=== PATIENT | male | born 1960 | race Caucasian/White ===

== ENCOUNTER → 2017-02-25 | Outpatient (CLI) | payer OTHER ==
[~2017-02-25] MED LIST: CALC12502; CELE20TA; CELE20TA OR; FOLI1TAB86 PO; LISI10TA4; LISI10TA4 OR; METF1000 PO; METO100T PO; NO MEDICATIONS; PROZ10CA7 PO; RISP0.5T3 PO; RISP1TAB; RISP1TAB OR; RISP2TAB3 PO; SIMV40TA2; TRAZ100T OR; TRAZ50TA; TRAZ50TA2 PO; VITA100T2 PO; VITA500047 PO; VITAMIN D50000 UNT; VITMTA PO; ZOCO40TA OR; androgel
[2017-02-25 10:49] LABS: ALBUMIN 3.5 GM/DL (3.2-5.2); ALBUMIN/GLOBULIN RATIO 1.06 (1.00-1.93); ALKALINE PHOSPHATASE 88 U/L (45-117); ALT/SGPT 25 U/L (12-78); ANION GAP 8 MEQ/L (8-16); AST/SGOT 22 U/L (15-37); BILIRUBIN,TOTAL 0.6 MG/DL (0.2-1.0); BLOOD UREA NITROGEN 15 MG/DL (7-18); CARBON DIOXIDE LEVEL 25 MEQ/L (21-32); CHLORIDE LEVEL 111 MEQ/L (98-107); CREATININE FOR GFR 0.86 MG/DL (0.70-1.30); GLOMERULAR FILTRATION RATE > 60.0 (>56); GLUCOSE, FASTING 97 MG/DL (70-105); POTASSIUM SERUM 3.9 MEQ/L (3.5-5.1); SODIUM LEVEL 144 MEQ/L (136-145); TOTAL PROTEIN 6.8 GM/DL (6.4-8.2)
== END ==
LOC: M LAB 08:55
PROVIDERS: ATTEND Nurse Practitioner Family
DX: J40 Bronchitis, not specified as acute or chronic (principal)

== ENCOUNTER → 2017-08-18 | Outpatient (REF) | payer OTHER | LOC: M LAB REF 16:46 | PROVIDERS: ATTEND Nurse Practitioner Adult Health | DX: E29.1 Testicular hypofunction (principal) ==

== ENCOUNTER 2017-11-23 07:57 | Inpatient (IN) | payer OTHER ==
[2017-11-23] MEDS ORDERED: LR 1,000 ML IV (08:00)
[2017-11-23 09:33] LABS: BEDSIDE GLUCOSE 97 MG/DL (70-105)
[2017-11-23] MEDS ORDERED: ROCURONIUM BROMIDE 50 MG/5 ML VIAL As Ordered ×2 (10:23→13:20)
[2017-11-23] MEDS ORDERED: MIDAZOLAM INJ 2 MG/2 ML VIAL (J2250) As Ordered (10:23)
[2017-11-23] MEDS ORDERED: LIDOCAINE 2% INJ 100 MG/5 ML SDV (FOR ANES.) As Ordered (10:23)
[2017-11-23] MEDS ORDERED: fentaNYL 250 MCG/5 ML INJECTION (J3010) As Ordered (10:23)
[2017-11-23] MEDS ORDERED: PROPOFOL 200 MG/20 ML VIAL As Ordered (10:23)
[2017-11-23] MEDS: LIDOCAINE W/EPINEPHRINE 1% 20ML VIAL As Ordered (13:05)
[2017-11-23] MEDS ORDERED: ePHEDrine INJ 50 MG/ML VIAL As Ordered (13:20)
[2017-11-23] MEDS ORDERED: GLYCOPYRROLATE INJ 0.2 MG/ML 2 ML VIAL As Ordered ×2 (13:21→16:48)
[2017-11-23] MEDS ORDERED: PHENYLephrine HCL 500 MCG/5 ML (100MCG/ML) SYRINGE (J2370) As Ordered (13:21)
[2017-11-23] MEDS ORDERED: HYDROmorphone HCL 2 MG/ML 1ML VIAL (J1170) As Ordered (13:36)
[2017-11-23] MEDS: ceFAZolin 1GM INJ (J0690 PER 500MG) As Ordered (14:06)
[2017-11-23] MEDS ORDERED: ONDANSETRON 4MG/2ML VIAL (J2405) As Ordered (14:31)
[2017-11-23] MEDS: BACITRACIN OINT 30GM As Ordered (17:15)
[2017-11-23] MEDS ORDERED: ONDANSETRON 4MG/2ML VIAL (J2405) IV (17:45)
[2017-11-23] MEDS ORDERED: PERCOCET 5MG/325MG TAB PO (17:45)
[2017-11-23] MEDS ORDERED: fentaNYL 100 MCG/2 ML INJECTION (J3010) IV (17:45)
[2017-11-23] MEDS: LR 1,000 ML IV (17:45)
[2017-11-23] MEDS ORDERED: HumaLOG INSULIN (NovoLOG) PER UNIT SC (18:00)
[2017-11-23] MEDS ORDERED: GLUCAGON FOR INJ 1 MG VIAL (J1610) SC (18:15)
[2017-11-23] MEDS ORDERED: GLUCOSE 4 GM CHEW TABLET PO (18:15)
[2017-11-23] MEDS ORDERED: NICOTINE 21MG/24HR 1 EA TRANSDERMAL TD (18:15)
[2017-11-23] MEDS ORDERED: DEXTROSE 50% 50 ML SYRINGE IV (18:15)
[2017-11-23] MEDS: NS 1,000 ML IV (19:00)
[2017-11-23 19:47] LABS: BEDSIDE GLUCOSE 88 MG/DL (70-105)
[2017-11-23 20:36] LABS: HIVSOURCE0 NEGATIVE (NEGATIVE)
[2017-11-23 20:43] LABS: CONTROL LINE INT CTR LINE PRESENT; HIV SOURCE PT 1 NEGATIVE (NEGATIVE)
[2017-11-23] MEDS: risperiDONE 1 MG TAB GT (21:00)
[2017-11-23] MEDS: METOPROLOL TART 50 MG TAB GT (21:00)
[2017-11-23] MEDS: SENOKOT S TAB GT (21:00)
[2017-11-23] MEDS: CEFAZOLIN SOD 1 GM in APPROPRIATE DILUENT 1 EA IV (22:15)
[2017-11-24 00:19] LABS: BEDSIDE GLUCOSE 98 MG/DL (70-105)
[2017-11-24] MEDS: NS 1,000 ML IV (04:15)
[2017-11-24 05:10] LABS: HEMATOCRIT 36.3 % (42.0-52.0); HEMOGLOBIN 12.1 g/dl (14.0-18.0); MEAN CORPUSCULAR HEMOGLOBIN 31.9 pg (27.0-33.0); MEAN CORPUSCULAR HGB CONC 33.3 g/dl (32.0-36.5); MEAN CORPUSCULAR VOLUME 95.8 fl (80.0-96.0); PLATELET COUNT, AUTOMATED 283 10^3/uL (150-450); RED BLOOD COUNT 3.79 10^6/uL (4.30-6.10); RED CELL DISTRIBUTION WIDTH 13.2 % (11.5-14.5); WHITE BLOOD COUNT 16.3 10^3/uL (4.0-10.0)
[2017-11-24 05:26] LABS: ANION GAP 7 MEQ/L (8-16); BLOOD UREA NITROGEN 12 MG/DL (7-18); CALCIUM LEVEL 7.9 MG/DL (8.5-10.1); CARBON DIOXIDE LEVEL 26 MEQ/L (21-32); CHLORIDE LEVEL 107 MEQ/L (98-107); CREATININE FOR GFR 0.51 MG/DL (0.70-1.30); GLOMERULAR FILTRATION RATE > 60.0 (>56); GLUCOSE, FASTING 94 MG/DL (70-105); MAGNESIUM LEVEL 1.8 MG/DL (1.8-2.4); POTASSIUM SERUM 3.7 MEQ/L (3.5-5.1); SODIUM LEVEL 140 MEQ/L (136-145)
[2017-11-24] MEDS: CEFAZOLIN SOD 1 GM in APPROPRIATE DILUENT 1 EA IV ×3 (06:13→22:40)
[2017-11-24] MEDS ORDERED: ISOVUE-370 76% 100ML VIAL (Q9967) As Ordered (07:38)
[2017-11-24] MEDS: SENOKOT S TAB GT ×2 (09:30→22:22)
[2017-11-24] MEDS: ATORVASTATIN 20 MG TAB GT (09:30)
[2017-11-24] MEDS: risperiDONE 1 MG TAB GT ×2 (09:31→22:22)
[2017-11-24] MEDS: METOPROLOL TART 50 MG TAB GT ×2 (09:31→22:21)
[2017-11-24] MEDS: PANTOPRAZOLE 40MG INJ (PROTONIX) (C9113) IV (09:31)
[2017-11-24] MEDS: FLUoxetine 10 MG CAP GT (09:31)
[2017-11-24 10:32] LABS: HEPATITIS B SURFACE ANTIGEN NEGATIVE (NEGATIVE)
[2017-11-24 11:01] LABS: HEP C VIRUS AB INDEX SOURCE PT 0.1 INDEX (0.0-0.8)
[2017-11-24] MEDS: LR 1,000 ML IV ×2 (11:04→20:19)
[2017-11-24] MEDS: MORPHINE 4 MG/ML 1ML SYRINGE IV (16:53)
[2017-11-25] MEDS: LR 1,000 ML IV (05:21)
[2017-11-25] MEDS: CEFAZOLIN SOD 1 GM in APPROPRIATE DILUENT 1 EA IV ×3 (05:22→21:39)
[2017-11-25 05:53] LABS: HEMOGLOBIN 10.7 g/dl (14.0-18.0); MEAN CORPUSCULAR HEMOGLOBIN 32.1 pg (27.0-33.0); MEAN CORPUSCULAR HGB CONC 33.4 g/dl (32.0-36.5); MEAN CORPUSCULAR VOLUME 96.1 fl (80.0-96.0); PLATELET COUNT, AUTOMATED 264 10^3/uL (150-450); RED BLOOD COUNT 3.33 10^6/uL (4.30-6.10); RED CELL DISTRIBUTION WIDTH 13.2 % (11.5-14.5); WHITE BLOOD COUNT 11.6 10^3/uL (4.0-10.0)
[2017-11-25 06:11] LABS: ANION GAP 3 MEQ/L (8-16); BLOOD UREA NITROGEN 6 MG/DL (7-18); CARBON DIOXIDE LEVEL 32 MEQ/L (21-32); CHLORIDE LEVEL 108 MEQ/L (98-107); CREATININE FOR GFR 0.47 MG/DL (0.70-1.30); GLOMERULAR FILTRATION RATE > 60.0 (>56); GLUCOSE, FASTING 144 MG/DL (70-105); POTASSIUM SERUM 3.3 MEQ/L (3.5-5.1); SODIUM LEVEL 143 MEQ/L (136-145)
[2017-11-25 08:37] LABS: FERRITIN 229 NG/ML (26-388); IRON (FE) 16 UG/DL (65-175); PERCENT SATURATION 10.2 % (19.7-50.0); TOTAL IRON BINDING CAPACITY 157 UG/DL (250-450)
[2017-11-25] MEDS: MULTIVITAMIN/MINERALS LIQUID 15ML ORAL SYRINGE PO (09:00)
[2017-11-25 09:33] LABS: VITAMIN B12 LEVEL 211 PG/ML (247-911)
[2017-11-25 09:34] LABS: FOLATE 4.7 NG/ML (>5.4)
[2017-11-25 09:46] LABS: INR 1.11; PROTHROMBIN TIME 14.5 SECONDS (12.4-14.5)
[2017-11-25 09:47] LABS: PARTIAL THROMBOPLASTIN TIME 37.4 SECONDS (26.8-37.9)
[2017-11-25] MEDS: PANTOPRAZOLE 40MG INJ (PROTONIX) (C9113) IV (10:33)
[2017-11-25] MEDS: SENOKOT S TAB GT ×2 (10:33→21:38)
[2017-11-25] MEDS: POTASSIUM CHLORIDE 10% LIQ 20 MEQ/15 ML UDC PO ×2 (10:33→21:39)
[2017-11-25] MEDS: FLUoxetine 10 MG CAP GT (10:33)
[2017-11-25] MEDS: METOPROLOL TART 50 MG TAB GT ×2 (10:33→21:00)
[2017-11-25] MEDS: ATORVASTATIN 20 MG TAB GT (10:34)
[2017-11-25] MEDS: risperiDONE 1 MG TAB GT ×2 (13:14→21:39)
[2017-11-25] MEDS: MORPHINE 4 MG/ML 1ML SYRINGE IV (13:16)
[2017-11-26 05:16] LABS: HEMATOCRIT 33.5 % (42.0-52.0); MEAN CORPUSCULAR HEMOGLOBIN 31.6 pg (27.0-33.0); MEAN CORPUSCULAR HGB CONC 32.8 g/dl (32.0-36.5); MEAN CORPUSCULAR VOLUME 96.3 fl (80.0-96.0); PLATELET COUNT, AUTOMATED 297 10^3/uL (150-450); RED BLOOD COUNT 3.48 10^6/uL (4.30-6.10); RED CELL DISTRIBUTION WIDTH 13.2 % (11.5-14.5); WHITE BLOOD COUNT 11.8 10^3/uL (4.0-10.0)
[2017-11-26 05:31] LABS: ANION GAP 5 MEQ/L (8-16); BLOOD UREA NITROGEN 5 MG/DL (7-18); CALCIUM LEVEL 8.2 MG/DL (8.5-10.1); CARBON DIOXIDE LEVEL 27 MEQ/L (21-32); CHLORIDE LEVEL 111 MEQ/L (98-107); CREATININE FOR GFR 0.45 MG/DL (0.70-1.30); GLOMERULAR FILTRATION RATE > 60.0 (>56); GLUCOSE, FASTING 134 MG/DL (70-105); MAGNESIUM LEVEL 2.2 MG/DL (1.8-2.4); POTASSIUM SERUM 3.6 MEQ/L (3.5-5.1); SODIUM LEVEL 143 MEQ/L (136-145)
[2017-11-26] MEDS: CEFAZOLIN SOD 1 GM in APPROPRIATE DILUENT 1 EA IV ×3 (05:58→21:22)
[2017-11-26] MEDS: LR 1,000 ML IV (06:52)
[2017-11-26] MEDS: METOPROLOL TART 50 MG TAB GT ×2 (09:00→21:22)
[2017-11-26] MEDS: ATORVASTATIN 20 MG TAB GT (09:00)
[2017-11-26] MEDS: SENOKOT S TAB GT ×2 (09:00→21:22)
[2017-11-26] MEDS: PANTOPRAZOLE 40MG INJ (PROTONIX) (C9113) IV (09:34)
[2017-11-26] MEDS: POTASSIUM CHLORIDE 10% LIQ 20 MEQ/15 ML UDC FT (09:35)
[2017-11-26] MEDS: FLUoxetine 10 MG CAP GT (09:36)
[2017-11-26] MEDS: MULTIVITAMIN/MINERALS LIQUID 15ML ORAL SYRINGE PO (09:42)
[2017-11-26] MEDS: risperiDONE 1 MG TAB GT ×2 (09:42→21:22)
[2017-11-26] MEDS: SODIUM CHLORIDE 0.9% 1000 ML IV (15:40)
[2017-11-26 16:31] LABS: APPEARANCE, URINE CLEAR (CLEAR); BACTERIA, URINE AUTO NEGATIVE (NEGATIVE); BILIRUBIN, URINE AUTO NEGATIVE (NEGATIVE); BLOOD, URINE BLOOD 1+ (NEGATIVE); COLOR, URINE YELLOW (YELLOW); GLUCOSE, URINE (UA) AUTO NEGATIVE (NEGATIVE); KETONE, URINE AUTO NEGATIVE (NEGATIVE); LEUKOCYTE ESTERASE, URINE AUTO NEGATIVE (NEGATIVE); NITRITE, URINE AUTO NEGATIVE (NEGATIVE); PROTEIN, URINE AUTO NEGATIVE (NEGATIVE); RBC, URINE AUTO 5 /HPF (0-3); SPECIFIC GRAVITY URINE AUTO 1.009 (1.002-1.035); SQUAMOUS EPITHELIAL CELL UR AU 0 /HPF (0-6); UROBILINOGEN, URINE AUTO 0.2 mg/dL (0.0-2.0); WBC, URINE AUTO 1 /HPF (0-3)
[2017-11-27] MEDS: MORPHINE 4 MG/ML 1ML SYRINGE IV (02:43)
[2017-11-27 05:35] LABS: HEMATOCRIT 32.4 % (42.0-52.0); HEMOGLOBIN 10.8 g/dl (14.0-18.0); MEAN CORPUSCULAR HEMOGLOBIN 31.7 pg (27.0-33.0); MEAN CORPUSCULAR HGB CONC 33.3 g/dl (32.0-36.5); PLATELET COUNT, AUTOMATED 326 10^3/uL (150-450); RED BLOOD COUNT 3.41 10^6/uL (4.30-6.10); WHITE BLOOD COUNT 11.2 10^3/uL (4.0-10.0)
[2017-11-27] MEDS: CEFAZOLIN SOD 1 GM in APPROPRIATE DILUENT 1 EA IV ×3 (05:46→21:08)
[2017-11-27 05:57] LABS: ANION GAP 4 MEQ/L (8-16); BLOOD UREA NITROGEN 7 MG/DL (7-18); CALCIUM LEVEL 8.2 MG/DL (8.5-10.1); CARBON DIOXIDE LEVEL 29 MEQ/L (21-32); CHLORIDE LEVEL 111 MEQ/L (98-107); GLOMERULAR FILTRATION RATE > 60.0 (>56); GLUCOSE, FASTING 105 MG/DL (70-105); MAGNESIUM LEVEL 2.2 MG/DL (1.8-2.4); SODIUM LEVEL 144 MEQ/L (136-145)
[2017-11-27] MEDS: METOPROLOL TART 50 MG TAB GT ×2 (09:00→21:00)
[2017-11-27] MEDS: PANTOPRAZOLE 40MG INJ (PROTONIX) (C9113) IV (10:01)
[2017-11-27] MEDS: MULTIVITAMIN/MINERALS LIQUID 15ML ORAL SYRINGE PO (10:01)
[2017-11-27] MEDS: FLUoxetine 10 MG CAP GT (10:02)
[2017-11-27] MEDS: ATORVASTATIN 20 MG TAB GT (10:02)
[2017-11-27] MEDS: risperiDONE 1 MG TAB GT ×2 (10:02→21:05)
[2017-11-27] MEDS: SENOKOT S TAB GT ×2 (10:02→21:07)
[2017-11-27] MEDS: LR 1,000 ML IV (14:09)
[2017-11-28 05:28] LABS: HEMATOCRIT 33.1 % (42.0-52.0); HEMOGLOBIN 10.8 g/dl (14.0-18.0); MEAN CORPUSCULAR HEMOGLOBIN 31.4 pg (27.0-33.0); MEAN CORPUSCULAR HGB CONC 32.6 g/dl (32.0-36.5); MEAN CORPUSCULAR VOLUME 96.2 fl (80.0-96.0); PLATELET COUNT, AUTOMATED 309 10^3/uL (150-450); RED BLOOD COUNT 3.44 10^6/uL (4.30-6.10); RED CELL DISTRIBUTION WIDTH 13.1 % (11.5-14.5); WHITE BLOOD COUNT 10.7 10^3/uL (4.0-10.0)
[2017-11-28 05:45] LABS: ANION GAP 5 MEQ/L (8-16); BLOOD UREA NITROGEN 9 MG/DL (7-18); CALCIUM LEVEL 8.4 MG/DL (8.5-10.1); CARBON DIOXIDE LEVEL 31 MEQ/L (21-32); CHLORIDE LEVEL 109 MEQ/L (98-107); GLOMERULAR FILTRATION RATE > 60.0 (>56); GLUCOSE, FASTING 83 MG/DL (70-105); MAGNESIUM LEVEL 2.4 MG/DL (1.8-2.4); SODIUM LEVEL 145 MEQ/L (136-145)
[2017-11-28] MEDS: CEFAZOLIN SOD 1 GM in APPROPRIATE DILUENT 1 EA IV ×3 (06:16→21:51)
[2017-11-28] MEDS: METOPROLOL TART 50 MG TAB GT (09:00)
[2017-11-28] MEDS: MULTIVITAMIN/MINERALS LIQUID 15ML ORAL SYRINGE PO (09:55)
[2017-11-28] MEDS: LR 1,000 ML IV (09:55)
[2017-11-28] MEDS: PANTOPRAZOLE 40MG INJ (PROTONIX) (C9113) IV (09:55)
[2017-11-28] MEDS: FLUoxetine 10 MG CAP GT (09:56)
[2017-11-28] MEDS: risperiDONE 1 MG TAB GT ×2 (09:56→21:51)
[2017-11-28] MEDS: SENOKOT S TAB GT ×2 (09:56→21:51)
[2017-11-28] MEDS: ATORVASTATIN 20 MG TAB GT (09:56)
[2017-11-28 13:50] LABS: BEDSIDE GLUCOSE 134 MG/DL (70-105)
[2017-11-28] MEDS: MORPHINE 4 MG/ML 1ML SYRINGE IV ×2 (15:36→21:50)
[2017-11-28 19:11] LABS: BEDSIDE GLUCOSE 94 MG/DL (70-105)
[2017-11-28] MEDS: METOPROLOL TART 12.5 MG PER 1/2 TAB FT (21:51)
[2017-11-29 00:30] LABS: BEDSIDE GLUCOSE 187 MG/DL (70-105)
[2017-11-29] MEDS ORDERED: SLF 3 ML SYR IV (04:15)
[2017-11-29 05:22] LABS: HEMATOCRIT 32.9 % (42.0-52.0); HEMOGLOBIN 11.2 g/dl (14.0-18.0); MEAN CORPUSCULAR HEMOGLOBIN 32.1 pg (27.0-33.0); MEAN CORPUSCULAR VOLUME 94.3 fl (80.0-96.0); PLATELET COUNT, AUTOMATED 339 10^3/uL (150-450); RED BLOOD COUNT 3.49 10^6/uL (4.30-6.10); RED CELL DISTRIBUTION WIDTH 13.1 % (11.5-14.5); WHITE BLOOD COUNT 10.5 10^3/uL (4.0-10.0)
[2017-11-29 05:42] LABS: ANION GAP 4 MEQ/L (8-16); BLOOD UREA NITROGEN 12 MG/DL (7-18); CALCIUM LEVEL 8.5 MG/DL (8.5-10.1); CARBON DIOXIDE LEVEL 31 MEQ/L (21-32); CHLORIDE LEVEL 107 MEQ/L (98-107); CREATININE FOR GFR 0.52 MG/DL (0.70-1.30); GLOMERULAR FILTRATION RATE > 60.0 (>56); GLUCOSE, FASTING 83 MG/DL (70-105); MAGNESIUM LEVEL 2.4 MG/DL (1.8-2.4); SODIUM LEVEL 142 MEQ/L (136-145)
[2017-11-29] MEDS: CEFAZOLIN SOD 1 GM in APPROPRIATE DILUENT 1 EA IV ×3 (05:50→22:08)
[2017-11-29] MEDS: SLF 3 ML SYR IV ×3 (05:50→22:08)
[2017-11-29] MEDS ORDERED: ACETAMINOPHEN/CODEINE 12.5 ML UDC PO (09:00)
[2017-11-29] MEDS: risperiDONE 1 MG TAB GT ×2 (10:15→22:08)
[2017-11-29] MEDS: ATORVASTATIN 20 MG TAB GT (10:15)
[2017-11-29] MEDS: SENOKOT S TAB GT ×2 (10:15→22:08)
[2017-11-29] MEDS: PANTOPRAZOLE 40MG INJ (PROTONIX) (C9113) IV (10:15)
[2017-11-29] MEDS: FLUoxetine 10 MG CAP GT (10:15)
[2017-11-29] MEDS: MULTIVITAMIN/MINERALS LIQUID 15ML ORAL SYRINGE PO (10:15)
[2017-11-29] MEDS: METOPROLOL TART 12.5 MG PER 1/2 TAB FT ×2 (10:21→22:07)
[2017-11-29 12:32] LABS: BEDSIDE GLUCOSE 116 MG/DL (70-105)
[2017-11-29 18:03] LABS: BEDSIDE GLUCOSE 98 MG/DL (70-105)
[2017-11-30 00:54] LABS: BEDSIDE GLUCOSE 81 MG/DL (70-105)
[2017-11-30] MEDS: CEFAZOLIN SOD 1 GM in APPROPRIATE DILUENT 1 EA IV ×2 (06:07→13:07)
[2017-11-30] MEDS: SLF 3 ML SYR IV ×3 (06:07→20:31)
[2017-11-30 06:40] LABS: HEMATOCRIT 34.7 % (42.0-52.0); HEMOGLOBIN 11.6 g/dl (14.0-18.0); MEAN CORPUSCULAR HEMOGLOBIN 31.4 pg (27.0-33.0); MEAN CORPUSCULAR HGB CONC 33.4 g/dl (32.0-36.5); PLATELET COUNT, AUTOMATED 357 10^3/uL (150-450); RED BLOOD COUNT 3.69 10^6/uL (4.30-6.10); RED CELL DISTRIBUTION WIDTH 13.1 % (11.5-14.5); WHITE BLOOD COUNT 11.2 10^3/uL (4.0-10.0)
[2017-11-30 06:57] LABS: ANION GAP 5 MEQ/L (8-16); BLOOD UREA NITROGEN 17 MG/DL (7-18); CALCIUM LEVEL 8.6 MG/DL (8.5-10.1); CARBON DIOXIDE LEVEL 29 MEQ/L (21-32); CHLORIDE LEVEL 108 MEQ/L (98-107); CREATININE FOR GFR 0.58 MG/DL (0.70-1.30); GLOMERULAR FILTRATION RATE > 60.0 (>56); GLUCOSE, FASTING 94 MG/DL (70-100); MAGNESIUM LEVEL 2.4 MG/DL (1.8-2.4); POTASSIUM SERUM 4.1 MEQ/L (3.5-5.1); SODIUM LEVEL 142 MEQ/L (136-145)
[2017-11-30] MEDS: FLUoxetine 10 MG CAP GT (10:03)
[2017-11-30] MEDS: risperiDONE 1 MG TAB GT ×2 (10:03→20:31)
[2017-11-30] MEDS: ATORVASTATIN 20 MG TAB GT (10:03)
[2017-11-30] MEDS: METOPROLOL TART 12.5 MG PER 1/2 TAB FT ×2 (10:03→20:31)
[2017-11-30] MEDS: SENOKOT S TAB GT ×2 (10:03→20:31)
[2017-11-30] MEDS: PANTOPRAZOLE 40MG INJ (PROTONIX) (C9113) IV (10:04)
[2017-11-30] MEDS: MULTIVITAMIN/MINERALS LIQUID 15ML ORAL SYRINGE PO (10:04)
[2017-11-30 13:23] LABS: BEDSIDE GLUCOSE 174 MG/DL (70-105)
[2017-12-01] MEDS: SLF 3 ML SYR IV (06:09)
[2017-12-01 08:51] LABS: HEMATOCRIT 35.6 % (42.0-52.0); HEMOGLOBIN 11.9 g/dl (14.0-18.0); MEAN CORPUSCULAR HEMOGLOBIN 32.2 pg (27.0-33.0); MEAN CORPUSCULAR HGB CONC 33.4 g/dl (32.0-36.5); MEAN CORPUSCULAR VOLUME 96.5 fl (80.0-96.0); PLATELET COUNT, AUTOMATED 350 10^3/uL (150-450); RED BLOOD COUNT 3.69 10^6/uL (4.30-6.10); RED CELL DISTRIBUTION WIDTH 13.2 % (11.5-14.5); WHITE BLOOD COUNT 9.3 10^3/uL (4.0-10.0)
[2017-12-01] MEDS: METOPROLOL TART 12.5 MG PER 1/2 TAB FT (09:00)
[2017-12-01 09:04] LABS: ANION GAP 6 MEQ/L (8-16); BLOOD UREA NITROGEN 14 MG/DL (7-18); CALCIUM LEVEL 8.1 MG/DL (8.5-10.1); CARBON DIOXIDE LEVEL 28 MEQ/L (21-32); CHLORIDE LEVEL 109 MEQ/L (98-107); CREATININE FOR GFR 0.65 MG/DL (0.70-1.30); GLOMERULAR FILTRATION RATE > 60.0 (>56); GLUCOSE, FASTING 122 MG/DL (70-100); POTASSIUM SERUM 4.2 MEQ/L (3.5-5.1); SODIUM LEVEL 143 MEQ/L (136-145)
[2017-12-01] MEDS: risperiDONE 1 MG TAB GT (09:48)
[2017-12-01] MEDS: PANTOPRAZOLE 40MG INJ (PROTONIX) (C9113) IV (09:48)
[2017-12-01] MEDS: ATORVASTATIN 20 MG TAB GT (09:48)
[2017-12-01] MEDS: MULTIVITAMIN/MINERALS LIQUID 15ML ORAL SYRINGE PO (09:48)
[2017-12-01] MEDS: SENOKOT S TAB GT (09:48)
[2017-12-01] MEDS: FLUoxetine 10 MG CAP GT (09:48)
== END 2017-12-01 11:20 | disposition home health service (06) | DRG 90 ==
LOC: M OR 07:57 → M PCU 11-24 16:20 → M ICU 18:30
PROVIDERS: Otolaryngology
PROC: 0CTS0ZZ Resection of Larynx, Open Approach (ICD-10-PCS; principal; 2017-11-23 10:15)
PROC: 0GBG0ZZ Excision of Left Thyroid Gland Lobe, Open Approach (ICD-10-PCS; 2017-11-23 10:15)
PROC: 0B1 Respiratory System, Bypass (ICD-10-PCS; 2017-11-23 10:15)
DX: C32.9 Malignant neoplasm of larynx, unspecified (principal); I77.4 Celiac artery compression syndrome; J44.9 Chronic obstructive pulmonary disease, unspecified; Z79.899 Other long term (current) drug therapy; I10 Essential (primary) hypertension; E11.9 Type 2 diabetes mellitus without complications; F17.200 Nicotine dependence, unspecified, uncomplicated; E78.5 Hyperlipidemia, unspecified; F41.9 Anxiety disorder, unspecified; K21.9 Gastro-esophageal reflux disease without esophagitis

== ENCOUNTER 2017-12-02 13:30 | Outpatient (RCR) | payer OTHER | END 2017-12-08 | disposition home or self-care (01) | LOC: M ST 13:30 | DX: Z51.89 Encounter for other specified aftercare (principal); C32.1 Malignant neoplasm of supraglottis ==

== ENCOUNTER 2017-12-09 15:08 | Outpatient (RCR) | payer OTHER | END 2018-01-05 | LOC: M ST 12-16 14:00 | DX: Z51.89 Encounter for other specified aftercare (principal); C32.1 Malignant neoplasm of supraglottis | CPT/HCPCS: 92507 ==

== ENCOUNTER → 2017-12-21 | Outpatient (CLI) | payer OTHER | LOC: M ONCR 14:04 | DX: C32.9 Malignant neoplasm of larynx, unspecified (principal) ==

== ENCOUNTER 2017-12-27 15:01 | Outpatient (RCR) | payer OTHER | END 2018-01-05 | LOC: M ONCR 15:01 | DX: C32.9 Malignant neoplasm of larynx, unspecified (principal) | CPT/HCPCS: 77334 ==

== ENCOUNTER → 2017-12-27 | Outpatient (CLI) | payer OTHER | LOC: M RAD 13:53 | DX: C32.9 Malignant neoplasm of larynx, unspecified (principal) ==

== ENCOUNTER → 2018-01-05 | Outpatient (CLI) | payer OTHER ==
[2018-01-05 10:11] LABS: INR 0.93; PROTHROMBIN TIME 12.5 SECONDS (12.4-14.5)
[2018-01-05 10:12] LABS: PARTIAL THROMBOPLASTIN TIME 30.4 SECONDS (26.8-37.9)
== END ==
LOC: M RAD 09:19
DX: C32.9 Malignant neoplasm of larynx, unspecified (principal)
CPT/HCPCS: 85610

== ENCOUNTER 2018-01-06 14:20 | Outpatient (RCR) | payer OTHER | END 2018-02-05 | LOC: M ST 01-13 08:15 | DX: Z51.89 Encounter for other specified aftercare (principal); C32.1 Malignant neoplasm of supraglottis ==

== ENCOUNTER → 2018-01-12 | Outpatient (CLI) | payer OTHER ==
[~2018-01-12] MED LIST changes: -CALC12502; -CELE20TA; -CELE20TA OR; -FOLI1TAB86 PO; +LIDOCAINE 1% MDV 20ML VIAL As Ordered; -LISI10TA4; -LISI10TA4 OR; -METF1000 PO; -METO100T PO; -NO MEDICATIONS; -PROZ10CA7 PO; -RISP0.5T3 PO; -RISP1TAB; -RISP1TAB OR; -RISP2TAB3 PO; -SIMV40TA2; -TRAZ100T OR; -TRAZ50TA; -TRAZ50TA2 PO; -VITA100T2 PO; -VITA500047 PO; -VITAMIN D50000 UNT; -VITMTA PO; -ZOCO40TA OR; -androgel
== END ==
LOC: M RADPRO 07:59
DX: R91.8 Other nonspecific abnormal finding of lung field (principal); C34.90 Malignant neoplasm of unspecified part of unspecified bronchus or lung; Z88.8 Allergy status to other drugs, medicaments and biological substances; Z79.899 Other long term (current) drug therapy
CPT/HCPCS: 32405

== ENCOUNTER → 2018-01-18 | Outpatient (CLI) | payer OTHER | LOC: M ST 08:24 | DX: R13.10 Dysphagia, unspecified (principal) | CPT/HCPCS: 74230 ==

== ENCOUNTER → 2018-01-20 | Outpatient (REF) | payer OTHER ==
[2018-01-20 17:58] LABS: CREATININE FOR GFR 0.79 MG/DL (0.70-1.30); GLOMERULAR FILTRATION RATE > 60.0 (>56)
[2018-01-20 17:58] LABS: BLOOD UREA NITROGEN 15 MG/DL (7-18)
== END ==
LOC: M LAB REF 16:48
DX: C34.11 Malignant neoplasm of upper lobe, right bronchus or lung (principal)

== ENCOUNTER → 2018-01-21 | Outpatient (CLI) | payer OTHER ==
[~2018-01-21] MED LIST changes: +ISOVUE-370 76% 100ML VIAL (Q9967) As Ordered; -LIDOCAINE 1% MDV 20ML VIAL As Ordered
== END ==
LOC: M RAD 06:50
DX: C34.11 Malignant neoplasm of upper lobe, right bronchus or lung (principal); R91.8 Other nonspecific abnormal finding of lung field
CPT/HCPCS: Q9967

== ENCOUNTER → 2018-01-26 | Outpatient (CLI) | payer OTHER ==
[~2018-01-26] MED LIST changes: -ISOVUE-370 76% 100ML VIAL (Q9967) As Ordered; +PROHANCE 279.3MG/ML 15ML VIAL (A9576) As Ordered
== END ==
LOC: M RAD 16:34
DX: C34.90 Malignant neoplasm of unspecified part of unspecified bronchus or lung (principal); M16.12 Unilateral primary osteoarthritis, left hip; R93.7 Abnormal findings on diagnostic imaging of other parts of musculoskeletal system
CPT/HCPCS: A9576

== ENCOUNTER → 2018-01-27 | Outpatient (CLI) | payer OTHER ==
[2018-01-27 11:55] LABS: ABG BASE EXCESS -3.3 (-2.0-2.0); ABG DEVICE ROOM AIR; ABG HCO3 20.7 MEQ/L (22.0-26.0); ABG O2 SATURATION 96.7 % (95.0-99.0); ABG PARTIAL PRESSURE CO2 34.5 mmHg (35.0-45.0); ABG PARTIAL PRESSURE O2 88.3 mmHg (75.0-100.0); ABG STANDARD HCO3 21.7 MEQ/L (22.0-26.0); ABG TOTAL CO2 21.8 MEQ/L (22.0-29.0); ABG pH (ARTERIAL) 7.396 UNITS (7.350-7.450)
[2018-01-27 12:09] LABS: APPEARANCE, URINE CLEAR (CLEAR); BACTERIA, URINE AUTO NEGATIVE (NEGATIVE); BILIRUBIN, URINE AUTO NEGATIVE (NEGATIVE); BLOOD, URINE BLOOD 2+ (NEGATIVE); COLOR, URINE YELLOW (YELLOW); GLUCOSE, URINE (UA) AUTO NEGATIVE (NEGATIVE); KETONE, URINE AUTO TRACE mg/dL (NEGATIVE); LEUKOCYTE ESTERASE, URINE AUTO NEGATIVE (NEGATIVE); MUCUS, URINE SMALL (NEGATIVE); NITRITE, URINE AUTO NEGATIVE (NEGATIVE); PROTEIN, URINE AUTO NEGATIVE (NEGATIVE); RBC, URINE AUTO 5 /HPF (0-3); SPECIFIC GRAVITY URINE AUTO 1.025 (1.002-1.035); SQUAMOUS EPITHELIAL CELL UR AU 0 /HPF (0-6); UROBILINOGEN, URINE AUTO 0.2 mg/dL (0.0-2.0); WBC, URINE AUTO 1 /HPF (0-3)
[2018-01-27 12:30] LABS: HEMATOCRIT 45.3 % (42.0-52.0); MEAN CORPUSCULAR HEMOGLOBIN 31.5 pg (27.0-33.0); MEAN CORPUSCULAR HGB CONC 33.1 g/dl (32.0-36.5); MEAN CORPUSCULAR VOLUME 95.2 fl (80.0-96.0); PLATELET COUNT, AUTOMATED 256 10^3/uL (150-450); RED BLOOD COUNT 4.76 10^6/uL (4.30-6.10); RED CELL DISTRIBUTION WIDTH 12.6 % (11.5-14.5)
[2018-01-27 12:48] LABS: INR 0.96; PROTHROMBIN TIME 12.9 SECONDS (12.4-14.5)
[2018-01-27 12:49] LABS: PARTIAL THROMBOPLASTIN TIME 31.6 SECONDS (26.8-37.9)
[2018-01-27 13:06] LABS: ANION GAP 5 MEQ/L (8-16); BLOOD UREA NITROGEN 9 MG/DL (7-18); CALCIUM LEVEL 8.9 MG/DL (8.5-10.1); CARBON DIOXIDE LEVEL 27 MEQ/L (21-32); CHLORIDE LEVEL 111 MEQ/L (98-107); CREATININE FOR GFR 0.78 MG/DL (0.70-1.30); GLOMERULAR FILTRATION RATE > 60.0 (>56); GLUCOSE, FASTING 92 MG/DL (70-100); POTASSIUM SERUM 4.4 MEQ/L (3.5-5.1); SODIUM LEVEL 143 MEQ/L (136-145)
== END ==
LOC: M ADMPAT 09:54
DX: Z01.818 Encounter for other preprocedural examination (principal); C34.90 Malignant neoplasm of unspecified part of unspecified bronchus or lung
CPT/HCPCS: 71046

== ENCOUNTER 2018-02-02 05:49 | Inpatient (IN) | payer OTHER ==
[2018-02-02] MEDS ORDERED: ceFAZolin 2 GM/D5W 50 ML IV BAG (J0690 PER 500MG) As Ordered (05:56)
[2018-02-02] MEDS: LR 1,000 ML IV ×2 (06:15→16:15)
[2018-02-02] MEDS: MUPIROCIN 2% OINT 22 GM TUBE TOP (06:15)
[2018-02-02] MEDS ORDERED: MIDAZOLAM INJ 2 MG/2 ML VIAL (J2250) As Ordered ×2 (06:52→09:56)
[2018-02-02] MEDS ORDERED: fentaNYL 100 MCG/2 ML INJECTION (J3010) As Ordered (06:52)
[2018-02-02] MEDS: fentaNYL 100 MCG/2 ML INJECTION (J3010) IV (07:18)
[2018-02-02] MEDS: MIDAZOLAM INJ 2 MG/2 ML VIAL (J2250) IV (07:18)
[2018-02-02 07:22] LABS: BEDSIDE GLUCOSE 96 MG/DL (70-105)
[2018-02-02] MEDS ORDERED: GLYCOPYRROLATE INJ 0.2 MG/ML 2 ML VIAL As Ordered (08:18)
[2018-02-02] MEDS ORDERED: ATROPINE SULF 1MG/10ML SYRINGE (J0461) As Ordered (08:19)
[2018-02-02] MEDS ORDERED: PHENYLephrine HCL 500 MCG/5 ML (100MCG/ML) SYRINGE (J2370) As Ordered ×4 (08:21→10:44)
[2018-02-02] MEDS: MOM 30ML SUSPENSION UDC PO (09:00)
[2018-02-02] MEDS: PANTOPRAZOLE 40MG TAB (PROTONIX) PO (09:00)
[2018-02-02] MEDS ORDERED: NICOTINE 21MG/24HR 1 EA TRANSDERMAL TD (09:00)
[2018-02-02] MEDS ORDERED: ONDANSETRON 4MG/2ML VIAL (J2405) IV ×3 (09:15→14:15)
[2018-02-02] MEDS ORDERED: NALOXONE INJ 0.4 MG/1 ML VIAL (J2310) IV (09:15)
[2018-02-02] MEDS ORDERED: EPIDURAL/PCA KEYS XX (09:15)
[2018-02-02] MEDS ORDERED: METOCLOPRAMIDE INJ 10MG/2ML VIAL (J2765) IV (09:15)
[2018-02-02] MEDS ORDERED: diphenhydrAMINE INJ 50MG/ML VIAL (J1200) IV (09:15)
[2018-02-02] MEDS ORDERED: WALLBOXKEY XX (09:15)
[2018-02-02] MEDS: CETACAINE SPRAY 5GM As Ordered (09:19)
[2018-02-02] MEDS ORDERED: PROPOFOL 200 MG/20 ML VIAL As Ordered ×2 (09:56→12:44)
[2018-02-02] MEDS ORDERED: fentaNYL 250 MCG/5 ML INJECTION (J3010) As Ordered (09:56)
[2018-02-02] MEDS ORDERED: BUPIVACAINE HCL 0.25% 30 ML VIAL As Ordered (09:56)
[2018-02-02] MEDS ORDERED: LIDOCAINE 2% INJ 100 MG/5 ML SDV (FOR ANES.) As Ordered (09:56)
[2018-02-02] MEDS ORDERED: ROCURONIUM BROMIDE 50 MG/5 ML VIAL As Ordered ×2 (09:56→10:05)
[2018-02-02] MEDS ORDERED: METOCLOPRAMIDE INJ 10MG/2ML VIAL (J2765) As Ordered (09:56)
[2018-02-02] MEDS ORDERED: dexameTHASONE 4 MG/ML 1ML VIAL (J1100) As Ordered ×2 (10:07)
[2018-02-02] MEDS: ceFAZolin 1GM INJ (J0690 PER 500MG) As Ordered (10:24)
[2018-02-02] MEDS ORDERED: DESFLURANE 240 ML INHALANT As Ordered (10:44)
[2018-02-02] MEDS: BUPIVACAINE HCL 0.5% 10 ML VIAL As Ordered (12:06)
[2018-02-02] MEDS: BUPIVACAINE LIPOSOME/PF 1.3% 20 ML VIAL (13.3MG/ML)(EXPAREL) As Ordered (12:06)
[2018-02-02] MEDS ORDERED: ONDANSETRON 4MG/2ML VIAL (J2405) As Ordered (12:08)
[2018-02-02] MEDS ORDERED: SUGAMMADEX SODIUM 500 MG/5 ML VIAL (BRIDION) As Ordered (12:09)
[2018-02-02] MEDS ORDERED: fentaNYL 100 MCG/2 ML INJECTION (J3010) IV (13:15)
[2018-02-02] MEDS: KETOROLAC 30 MG/ML VIAL (J1885) IV ×2 (13:20→20:13)
[2018-02-02] MEDS ORDERED: KETOROLAC 30 MG/ML VIAL (J1885) As Ordered (13:20)
[2018-02-02 13:29] LABS: ABG DEVICE TRACH COLLAR; ABG FIO2 40; ABG HCO3 21.4 MEQ/L (22.0-26.0); ABG O2 SATURATION 95.6 % (95.0-99.0); ABG PARTIAL PRESSURE CO2 44.9 mmHg (35.0-45.0); ABG PARTIAL PRESSURE O2 91.1 mmHg (75.0-100.0); ABG STANDARD HCO3 20.3 MEQ/L (22.0-26.0); ABG TOTAL CO2 22.8 MEQ/L (22.0-29.0); ABG pH (ARTERIAL) 7.297 UNITS (7.350-7.450)
[2018-02-02 13:33] LABS: HEMOGLOBIN 14.4 g/dl (14.0-18.0); MEAN CORPUSCULAR HEMOGLOBIN 32.1 pg (27.0-33.0); MEAN CORPUSCULAR HGB CONC 33.5 g/dl (32.0-36.5); MEAN CORPUSCULAR VOLUME 95.8 fl (80.0-96.0); PLATELET COUNT, AUTOMATED 271 10^3/uL (150-450); RED BLOOD COUNT 4.49 10^6/uL (4.30-6.10); RED CELL DISTRIBUTION WIDTH 13.1 % (11.5-14.5); WHITE BLOOD COUNT 25.1 10^3/uL (4.0-10.0)
[2018-02-02 13:55] LABS: ANION GAP 4 MEQ/L (8-16); BLOOD UREA NITROGEN 8 MG/DL (7-18); CALCIUM LEVEL 8.3 MG/DL (8.5-10.1); CARBON DIOXIDE LEVEL 25 MEQ/L (21-32); CHLORIDE LEVEL 113 MEQ/L (98-107); CREATININE FOR GFR 0.79 MG/DL (0.70-1.30); GLOMERULAR FILTRATION RATE > 60.0 (>56); GLUCOSE, FASTING 158 MG/DL (70-100); POTASSIUM SERUM 4.5 MEQ/L (3.5-5.1); SODIUM LEVEL 142 MEQ/L (136-145)
[2018-02-02] MEDS ORDERED: GLUCAGON FOR INJ 1 MG VIAL (J1610) SC (14:15)
[2018-02-02] MEDS ORDERED: DEXTROSE 50% 50 ML SYRINGE IV (14:15)
[2018-02-02] MEDS ORDERED: ACETAMINOPHEN TAB 650MG DOSE (2X325MG) PO (14:15)
[2018-02-02] MEDS ORDERED: GLUCOSE 4 GM CHEW TABLET PO (14:15)
[2018-02-02] MEDS ORDERED: BISACODYL 10 MG SUPP PR (14:15)
[2018-02-02] MEDS ORDERED: LEVALBUTEROL 1.25 MG/0.5 ML CONCENTRATE NEB NEB (14:15)
[2018-02-02] MEDS: FENTANYL/BUPIVACAINE/NACL BAG 250 ML EPIDURAL (15:57)
[2018-02-02] MEDS: KCL 20MEQ IN D5/NS 1000ML 1,000 ML IV (16:00)
[2018-02-02] MEDS: CEFAZOLIN SOD 1 GM in APPROPRIATE DILUENT 1 EA IV (16:06)
[2018-02-02] MEDS: HumaLOG INSULIN (NovoLOG) PER UNIT SC (17:07)
[2018-02-02 17:08] LABS: BEDSIDE GLUCOSE 151 MG/DL (70-105)
[2018-02-02] MEDS ORDERED: METOPROLOL TARTRATE 100 MG TAB As Ordered (17:18)
[2018-02-02] MEDS: METOPROLOL TARTRATE 100 MG TAB PO (17:27)
[2018-02-02] MEDS: DOCUSATE SODIUM 100 MG CAP PO (20:14)
[2018-02-02] MEDS: HEPARIN SOD (PORCINE) 5000 UNITS/ML VIAL SC (20:14)
[2018-02-02] MEDS: risperiDONE 1 MG TAB PO (20:14)
[2018-02-02] MEDS: LEVALBUTEROL 1.25 MG/0.5 ML CONCENTRATE NEB NEB (20:57)
[2018-02-02] MEDS: BUDESONIDE 0.5 MG/2 ML INHALATION SUSPENSION INH (20:57)
[2018-02-03] MEDS: CEFAZOLIN SOD 1 GM in APPROPRIATE DILUENT 1 EA IV ×4 (00:19→23:43)
[2018-02-03 00:24] LABS: BEDSIDE GLUCOSE 130 MG/DL (70-105)
[2018-02-03] MEDS: LEVALBUTEROL 1.25 MG/0.5 ML CONCENTRATE NEB NEB ×4 (02:00→20:00)
[2018-02-03] MEDS: KETOROLAC 30 MG/ML VIAL (J1885) IV ×4 (03:00→21:07)
[2018-02-03] MEDS: KCL 20MEQ IN D5/NS 1000ML 1,000 ML IV (03:00)
[2018-02-03 06:11] LABS: ABG BASE EXCESS -2.7 (-2.0-2.0); ABG HCO3 22.5 MEQ/L (22.0-26.0); ABG O2 SATURATION 98.3 % (95.0-99.0); ABG PARTIAL PRESSURE CO2 40.5 mmHg (35.0-45.0); ABG PARTIAL PRESSURE O2 117.2 mmHg (75.0-100.0); ABG STANDARD HCO3 22.2 MEQ/L (22.0-26.0); ABG TOTAL CO2 23.7 MEQ/L (22.0-29.0); ABG pH (ARTERIAL) 7.362 UNITS (7.350-7.450)
[2018-02-03 06:17] LABS: BASO % 0.1 % (0.0-1.0); HEMATOCRIT 35.8 % (42.0-52.0); IMMATURE GRANULOCYTE % 0.5 % (0-3.0); LYMPH # 1.8 10^3/uL (1.5-4.5); LYMPH % 9.7 % (24.0-44.0); MEAN CORPUSCULAR HEMOGLOBIN 32.5 pg (27.0-33.0); MEAN CORPUSCULAR HGB CONC 33.8 g/dl (32.0-36.5); MEAN CORPUSCULAR VOLUME 96.2 fl (80.0-96.0); MONO % 14.4 % (0.0-5.0); NEUTROPHILS # 13.9 10^3/uL (1.8-7.7); NEUTROPHILS % 75.3 % (36.0-66.0); PLATELET COUNT, AUTOMATED 222 10^3/uL (150-450); RED BLOOD COUNT 3.72 10^6/uL (4.30-6.10); RED CELL DISTRIBUTION WIDTH 12.7 % (11.5-14.5); WHITE BLOOD COUNT 18.4 10^3/uL (4.0-10.0)
[2018-02-03 06:20] LABS: HEMOGLOBIN 12.1 g/dl (14.0-18.0); MONO # 2.7 10^3/uL (0.0-0.8); POSITIVE DIFF POS FLAG
[2018-02-03 06:38] LABS: ANION GAP 4 MEQ/L (8-16); BLOOD UREA NITROGEN 14 MG/DL (7-18); CALCIUM LEVEL 7.9 MG/DL (8.5-10.1); CARBON DIOXIDE LEVEL 25 MEQ/L (21-32); CHLORIDE LEVEL 112 MEQ/L (98-107); GLOMERULAR FILTRATION RATE > 60.0 (>56); GLUCOSE, FASTING 115 MG/DL (70-100); POTASSIUM SERUM 4.9 MEQ/L (3.5-5.1); SODIUM LEVEL 141 MEQ/L (136-145)
[2018-02-03] MEDS: FORMOTEROL FUMARATE 20 MCG/2 ML INHALATION SOLUTION (PERFOROMIST) INH ×2 (08:00→20:13)
[2018-02-03] MEDS: BUDESONIDE 0.5 MG/2 ML INHALATION SUSPENSION INH ×2 (08:09→20:13)
[2018-02-03] MEDS: HEPARIN SOD (PORCINE) 5000 UNITS/ML VIAL SC ×2 (09:26→21:12)
[2018-02-03] MEDS: HumaLOG INSULIN (NovoLOG) PER UNIT SC ×4 (09:27→21:00)
[2018-02-03] MEDS: FLUTICASONE PROP 0.05% NASAL SPRAY 16 GM (FLONASE) (09:28)
[2018-02-03] MEDS: METOPROLOL TARTRATE 100 MG TAB PO (09:30)
[2018-02-03] MEDS: risperiDONE 1 MG TAB PO ×2 (09:31→21:07)
[2018-02-03] MEDS: ATORVASTATIN 20 MG TAB PO (09:31)
[2018-02-03] MEDS: DOCUSATE SODIUM 100 MG CAP PO ×2 (09:31→21:07)
[2018-02-03] MEDS: FLUoxetine 10 MG CAP PO (09:31)
[2018-02-03] MEDS: PANTOPRAZOLE 40MG TAB (PROTONIX) PO (09:31)
[2018-02-03] MEDS: MOM 30ML SUSPENSION UDC PO (09:31)
[2018-02-03] MEDS: metFORMIN (GLUCOPHAGE) 1000 MG TABLET PO (09:31)
[2018-02-03 12:46] LABS: BEDSIDE GLUCOSE 123 MG/DL (70-105)
[2018-02-03] MEDS: FENTANYL/BUPIVACAINE/NACL BAG 250 ML EPIDURAL (15:05)
[2018-02-03 17:43] LABS: BEDSIDE GLUCOSE 106 MG/DL (70-105)
[2018-02-03 21:30] LABS: BEDSIDE GLUCOSE 137 MG/DL (70-105)
[2018-02-04] MEDS: KETOROLAC 30 MG/ML VIAL (J1885) IV ×4 (02:00→21:35)
[2018-02-04] MEDS: LEVALBUTEROL 1.25 MG/0.5 ML CONCENTRATE NEB NEB ×5 (02:00→20:00)
[2018-02-04 05:26] LABS: BASO % 0.3 % (0.0-1.0); EOS # 0.1 10^3/uL (0.0-0.50); EOS % 0.9 % (0.0-3.0); HEMATOCRIT 35.3 % (42.0-52.0); HEMOGLOBIN 11.5 g/dl (13.5-17.5); IMMATURE GRANULOCYTE % 0.5 % (0-3.0); LYMPH # 1.5 10^3/uL (1.5-4.5); LYMPH % 12.9 % (24.0-44.0); MEAN CORPUSCULAR HEMOGLOBIN 31.8 pg (27.0-33.0); MEAN CORPUSCULAR HGB CONC 32.6 g/dl (32.0-36.5); MEAN CORPUSCULAR VOLUME 97.5 fl (80.0-96.0); MONO # 1.6 10^3/uL (0.0-0.8); MONO % 13.5 % (0.0-5.0); NEUTROPHILS # 8.6 10^3/uL (1.8-7.7); NEUTROPHILS % 71.9 % (36.0-66.0); PLATELET COUNT, AUTOMATED 221 10^3/uL (150-450); RED BLOOD COUNT 3.62 10^6/uL (4.30-6.10); RED CELL DISTRIBUTION WIDTH 12.9 % (11.5-14.5)
[2018-02-04 05:39] LABS: ANION GAP 3 MEQ/L (8-16); BLOOD UREA NITROGEN 20 MG/DL (7-18); CALCIUM LEVEL 8.3 MG/DL (8.5-10.1); CARBON DIOXIDE LEVEL 28 MEQ/L (21-32); CHLORIDE LEVEL 111 MEQ/L (98-107); CREATININE FOR GFR 0.73 MG/DL (0.70-1.30); GLOMERULAR FILTRATION RATE > 60.0 (>56); GLUCOSE, FASTING 136 MG/DL (70-100); POTASSIUM SERUM 4.5 MEQ/L (3.5-5.1); SODIUM LEVEL 142 MEQ/L (136-145)
[2018-02-04] MEDS: BUDESONIDE 0.5 MG/2 ML INHALATION SUSPENSION INH ×2 (08:27→20:21)
[2018-02-04] MEDS: FORMOTEROL FUMARATE 20 MCG/2 ML INHALATION SOLUTION (PERFOROMIST) INH ×2 (08:27→20:21)
[2018-02-04] MEDS: MOM 30ML SUSPENSION UDC PO (09:00)
[2018-02-04] MEDS: METOPROLOL TARTRATE 100 MG TAB PO (09:00)
[2018-02-04] MEDS: HEPARIN SOD (PORCINE) 5000 UNITS/ML VIAL SC ×2 (09:41→21:44)
[2018-02-04] MEDS: HumaLOG INSULIN (NovoLOG) PER UNIT SC ×4 (09:42→21:00)
[2018-02-04] MEDS: risperiDONE 1 MG TAB PO ×2 (09:43→21:43)
[2018-02-04] MEDS: PANTOPRAZOLE 40MG TAB (PROTONIX) PO (09:43)
[2018-02-04] MEDS: FLUoxetine 10 MG CAP PO (09:43)
[2018-02-04] MEDS: DOCUSATE SODIUM 100 MG CAP PO ×2 (09:43→21:43)
[2018-02-04] MEDS: ATORVASTATIN 20 MG TAB PO (09:43)
[2018-02-04] MEDS: metFORMIN (GLUCOPHAGE) 1000 MG TABLET PO (09:43)
[2018-02-04] MEDS ORDERED: SLF 3 ML SYR IV (10:30)
[2018-02-04] MEDS: FLUTICASONE PROP 0.05% NASAL SPRAY 16 GM (FLONASE) (11:17)
[2018-02-04] MEDS: CEFAZOLIN SOD 1 GM in APPROPRIATE DILUENT 1 EA IV (11:17)
[2018-02-04 12:40] LABS: BEDSIDE GLUCOSE 107 MG/DL (70-105)
[2018-02-04] MEDS: SLF 3 ML SYR IV ×2 (14:43→21:44)
[2018-02-04] MEDS: FENTANYL/BUPIVACAINE/NACL BAG 250 ML EPIDURAL (16:24)
[2018-02-04 18:01] LABS: BEDSIDE GLUCOSE 187 MG/DL (70-105)
[2018-02-05] MEDS: LEVALBUTEROL 1.25 MG/0.5 ML CONCENTRATE NEB NEB ×4 (01:55→20:00)
[2018-02-05] MEDS: KETOROLAC 30 MG/ML VIAL (J1885) IV ×4 (02:28→20:40)
[2018-02-05 04:36] LABS: BEDSIDE GLUCOSE 109 MG/DL (70-105)
[2018-02-05 05:32] LABS: BASO % 0.4 % (0.0-1.0); EOS # 0.3 10^3/uL (0.0-0.50); EOS % 3.3 % (0.0-3.0); HEMATOCRIT 32.5 % (42.0-52.0); HEMOGLOBIN 10.5 g/dl (13.5-17.5); IMMATURE GRANULOCYTE % 0.7 % (0-3.0); LYMPH # 1.9 10^3/uL (1.5-4.5); LYMPH % 20.5 % (24.0-44.0); MEAN CORPUSCULAR HEMOGLOBIN 31.9 pg (27.0-33.0); MEAN CORPUSCULAR HGB CONC 32.3 g/dl (32.0-36.5); MEAN CORPUSCULAR VOLUME 98.8 fl (80.0-96.0); MONO # 1.2 10^3/uL (0.0-0.8); MONO % 12.9 % (0.0-5.0); NEUTROPHILS # 5.7 10^3/uL (1.8-7.7); NEUTROPHILS % 62.2 % (36.0-66.0); PLATELET COUNT, AUTOMATED 185 10^3/uL (150-450); RED BLOOD COUNT 3.29 10^6/uL (4.30-6.10); RED CELL DISTRIBUTION WIDTH 12.8 % (11.5-14.5); WHITE BLOOD COUNT 9.2 10^3/uL (4.0-10.0)
[2018-02-05 05:45] LABS: ANION GAP 5 MEQ/L (8-16); BLOOD UREA NITROGEN 18 MG/DL (7-18); CALCIUM LEVEL 8.9 MG/DL (8.5-10.1); CARBON DIOXIDE LEVEL 27 MEQ/L (21-32); CHLORIDE LEVEL 111 MEQ/L (98-107); CREATININE FOR GFR 0.67 MG/DL (0.70-1.30); GLOMERULAR FILTRATION RATE > 60.0 (>56); GLUCOSE, FASTING 141 MG/DL (70-100); SODIUM LEVEL 143 MEQ/L (136-145)
[2018-02-05] MEDS: SLF 3 ML SYR IV ×3 (06:00→22:00)
[2018-02-05] MEDS: FORMOTEROL FUMARATE 20 MCG/2 ML INHALATION SOLUTION (PERFOROMIST) INH ×2 (07:27→20:49)
[2018-02-05] MEDS: BUDESONIDE 0.5 MG/2 ML INHALATION SUSPENSION INH ×2 (07:28→20:49)
[2018-02-05] MEDS: HumaLOG INSULIN (NovoLOG) PER UNIT SC ×4 (09:22→20:41)
[2018-02-05] MEDS: MOM 30ML SUSPENSION UDC PO ×3 (09:23→09:32)
[2018-02-05] MEDS: PANTOPRAZOLE 40MG TAB (PROTONIX) PO (09:23)
[2018-02-05] MEDS: HEPARIN SOD (PORCINE) 5000 UNITS/ML VIAL SC ×2 (09:23→20:40)
[2018-02-05] MEDS: DOCUSATE SODIUM 100 MG CAP PO ×2 (09:24→20:40)
[2018-02-05] MEDS: ATORVASTATIN 20 MG TAB PO (09:24)
[2018-02-05] MEDS: FLUoxetine 10 MG CAP PO (09:25)
[2018-02-05] MEDS: metFORMIN (GLUCOPHAGE) 1000 MG TABLET PO (09:25)
[2018-02-05] MEDS: risperiDONE 1 MG TAB PO ×2 (09:25→20:40)
[2018-02-05] MEDS: METOPROLOL TARTRATE 100 MG TAB PO (09:26)
[2018-02-05] MEDS: FLUTICASONE PROP 0.05% NASAL SPRAY 16 GM (FLONASE) (09:27)
[2018-02-05 17:18] LABS: BEDSIDE GLUCOSE 138 MG/DL (70-105)
[2018-02-05] MEDS: FENTANYL/BUPIVACAINE/NACL BAG 250 ML EPIDURAL (18:14)
[2018-02-05 20:42] LABS: BEDSIDE GLUCOSE 106 MG/DL (70-105)
[2018-02-06] MEDS: LEVALBUTEROL 1.25 MG/0.5 ML CONCENTRATE NEB NEB ×4 (01:47→21:58)
[2018-02-06] MEDS: KETOROLAC 30 MG/ML VIAL (J1885) IV ×4 (02:05→20:54)
[2018-02-06] MEDS: SLF 3 ML SYR IV ×3 (05:25→20:54)
[2018-02-06 06:01] LABS: BASO # 0.1 10^3/uL (0.0-0.2); BASO % 0.7 % (0.0-1.0); EOS # 0.3 10^3/uL (0.0-0.50); HEMATOCRIT 30.5 % (42.0-52.0); HEMOGLOBIN 9.9 g/dl (13.5-17.5); IMMATURE GRANULOCYTE % 1.4 % (0-3.0); LYMPH # 2.1 10^3/uL (1.5-4.5); LYMPH % 19.8 % (24.0-44.0); MEAN CORPUSCULAR HEMOGLOBIN 31.9 pg (27.0-33.0); MEAN CORPUSCULAR HGB CONC 32.5 g/dl (32.0-36.5); MEAN CORPUSCULAR VOLUME 98.4 fl (80.0-96.0); MONO # 1.7 10^3/uL (0.0-0.8); MONO % 15.6 % (0.0-5.0); NEUTROPHILS # 6.3 10^3/uL (1.8-7.7); NEUTROPHILS % 59.5 % (36.0-66.0); PLATELET COUNT, AUTOMATED 209 10^3/uL (150-450); RED CELL DISTRIBUTION WIDTH 12.9 % (11.5-14.5); WHITE BLOOD COUNT 10.6 10^3/uL (4.0-10.0)
[2018-02-06 06:26] LABS: ANION GAP 4 MEQ/L (8-16); BLOOD UREA NITROGEN 16 MG/DL (7-18); CARBON DIOXIDE LEVEL 28 MEQ/L (21-32); CHLORIDE LEVEL 112 MEQ/L (98-107); CREATININE FOR GFR 0.59 MG/DL (0.70-1.30); GLOMERULAR FILTRATION RATE > 60.0 (>56); GLUCOSE, FASTING 105 MG/DL (70-100); SODIUM LEVEL 144 MEQ/L (136-145)
[2018-02-06] MEDS: BUDESONIDE 0.5 MG/2 ML INHALATION SUSPENSION INH ×2 (08:43→21:00)
[2018-02-06] MEDS: FORMOTEROL FUMARATE 20 MCG/2 ML INHALATION SOLUTION (PERFOROMIST) INH ×2 (08:43→21:58)
[2018-02-06] MEDS: HEPARIN SOD (PORCINE) 5000 UNITS/ML VIAL SC ×2 (09:09→20:53)
[2018-02-06] MEDS: HumaLOG INSULIN (NovoLOG) PER UNIT SC ×4 (09:09→21:00)
[2018-02-06] MEDS: metFORMIN (GLUCOPHAGE) 1000 MG TABLET PO (09:11)
[2018-02-06] MEDS: FLUoxetine 10 MG CAP PO (09:11)
[2018-02-06] MEDS: risperiDONE 1 MG TAB PO ×2 (09:11→20:54)
[2018-02-06] MEDS: ATORVASTATIN 20 MG TAB PO (09:11)
[2018-02-06] MEDS: DOCUSATE SODIUM 100 MG CAP PO ×2 (09:12→20:54)
[2018-02-06] MEDS: MOM 30ML SUSPENSION UDC PO (09:12)
[2018-02-06] MEDS: METOPROLOL TARTRATE 100 MG TAB PO (09:12)
[2018-02-06] MEDS: PANTOPRAZOLE 40MG TAB (PROTONIX) PO (09:12)
[2018-02-06] MEDS: FLUTICASONE PROP 0.05% NASAL SPRAY 16 GM (FLONASE) (09:28)
[2018-02-06 12:27] LABS: BEDSIDE GLUCOSE 105 MG/DL (70-105)
[2018-02-06] MEDS: FUROSEMIDE 40 MG/4 ML VIAL (J1940) IV (12:41)
[2018-02-06] MEDS: PERCOCET 5MG/325MG TAB PO ×2 (14:14→18:16)
[2018-02-06 17:40] LABS: BEDSIDE GLUCOSE 102 MG/DL (70-105)
[2018-02-06 21:07] LABS: BEDSIDE GLUCOSE 124 MG/DL (70-105)
[2018-02-07] MEDS: LEVALBUTEROL 1.25 MG/0.5 ML CONCENTRATE NEB NEB ×4 (02:00→20:24)
[2018-02-07] MEDS: KETOROLAC 30 MG/ML VIAL (J1885) IV ×3 (02:30→13:49)
[2018-02-07] MEDS: SLF 3 ML SYR IV ×3 (05:16→21:44)
[2018-02-07 05:19] LABS: BASO # 0.1 10^3/uL (0.0-0.2); BASO % 0.9 % (0.0-1.0); EOS # 0.3 10^3/uL (0.0-0.50); EOS % 2.7 % (0.0-3.0); HEMATOCRIT 31.5 % (42.0-52.0); HEMOGLOBIN 10.4 g/dl (13.5-17.5); IMMATURE GRANULOCYTE % 4.5 % (0-3.0); LYMPH # 1.9 10^3/uL (1.5-4.5); LYMPH % 18.1 % (24.0-44.0); MEAN CORPUSCULAR HEMOGLOBIN 32.2 pg (27.0-33.0); MEAN CORPUSCULAR VOLUME 97.5 fl (80.0-96.0); MONO # 1.8 10^3/uL (0.0-0.8); MONO % 17.1 % (0.0-5.0); NEUTROPHILS # 6.1 10^3/uL (1.8-7.7); NEUTROPHILS % 56.7 % (36.0-66.0); PLATELET COUNT, AUTOMATED 235 10^3/uL (150-450); RED BLOOD COUNT 3.23 10^6/uL (4.30-6.10); RED CELL DISTRIBUTION WIDTH 12.8 % (11.5-14.5); WHITE BLOOD COUNT 10.7 10^3/uL (4.0-10.0)
[2018-02-07 05:38] LABS: ANION GAP 4 MEQ/L (8-16); BLOOD UREA NITROGEN 20 MG/DL (7-18); CALCIUM LEVEL 8.9 MG/DL (8.5-10.1); CARBON DIOXIDE LEVEL 31 MEQ/L (21-32); CHLORIDE LEVEL 109 MEQ/L (98-107); CREATININE FOR GFR 0.72 MG/DL (0.70-1.30); GLOMERULAR FILTRATION RATE > 60.0 (>56); GLUCOSE, FASTING 114 MG/DL (70-100); POTASSIUM SERUM 4.1 MEQ/L (3.5-5.1); SODIUM LEVEL 144 MEQ/L (136-145)
[2018-02-07] MEDS: HumaLOG INSULIN (NovoLOG) PER UNIT SC ×4 (07:30→21:00)
[2018-02-07] MEDS: MOM 30ML SUSPENSION UDC PO (08:37)
[2018-02-07] MEDS: METOPROLOL TARTRATE 100 MG TAB PO (08:38)
[2018-02-07] MEDS: DOCUSATE SODIUM 100 MG CAP PO ×2 (08:38→21:42)
[2018-02-07] MEDS: ATORVASTATIN 20 MG TAB PO (08:38)
[2018-02-07] MEDS: metFORMIN (GLUCOPHAGE) 1000 MG TABLET PO (08:38)
[2018-02-07] MEDS: HEPARIN SOD (PORCINE) 5000 UNITS/ML VIAL SC ×2 (08:38→21:43)
[2018-02-07] MEDS: PANTOPRAZOLE 40MG TAB (PROTONIX) PO (08:38)
[2018-02-07] MEDS: risperiDONE 1 MG TAB PO ×2 (08:39→21:43)
[2018-02-07] MEDS: FLUoxetine 10 MG CAP PO (08:39)
[2018-02-07] MEDS: BUDESONIDE 0.5 MG/2 ML INHALATION SUSPENSION INH ×2 (08:46→20:23)
[2018-02-07] MEDS: FORMOTEROL FUMARATE 20 MCG/2 ML INHALATION SOLUTION (PERFOROMIST) INH ×2 (08:46→20:23)
[2018-02-07] MEDS: FLUTICASONE PROP 0.05% NASAL SPRAY 16 GM (FLONASE) (09:00)
[2018-02-07 11:52] LABS: BEDSIDE GLUCOSE 116 MG/DL (70-105)
[2018-02-07 15:57] LABS: BEDSIDE GLUCOSE 145 MG/DL (70-105)
[2018-02-07 15:57] LABS: BEDSIDE GLUCOSE 147 MG/DL (70-105)
[2018-02-07 17:22] LABS: BEDSIDE GLUCOSE 123 MG/DL (70-105)
[2018-02-07] MEDS: NORCO, ANEXSIA 5/325MG TABLET (HYDROcodone/ACETAMINOPHEN) PO (21:44)
[2018-02-07 21:58] LABS: BEDSIDE GLUCOSE 120 MG/DL (70-105)
[2018-02-08] MEDS: LEVALBUTEROL 1.25 MG/0.5 ML CONCENTRATE NEB NEB ×2 (02:00→07:15)
[2018-02-08] MEDS: SLF 3 ML SYR IV (03:49)
[2018-02-08 05:37] LABS: HEMATOCRIT 30.1 % (42.0-52.0); HEMOGLOBIN 9.8 g/dl (13.5-17.5); MEAN CORPUSCULAR HEMOGLOBIN 31.2 pg (27.0-33.0); MEAN CORPUSCULAR HGB CONC 32.6 g/dl (32.0-36.5); MEAN CORPUSCULAR VOLUME 95.9 fl (80.0-96.0); PLATELET COUNT, AUTOMATED 281 10^3/uL (150-450); RED BLOOD COUNT 3.14 10^6/uL (4.30-6.10); RED CELL DISTRIBUTION WIDTH 13.1 % (11.5-14.5); WHITE BLOOD COUNT 10.9 10^3/uL (4.0-10.0)
[2018-02-08 05:38] LABS: POS COUNT POS FLAG; POSITIVE MORPH POS FLAG
[2018-02-08 05:39] LABS: ADD MANUAL DIFFER YES; DIFF SLIDE NUMBER 12
[2018-02-08 05:49] LABS: ANION GAP 5 MEQ/L (8-16); BLOOD UREA NITROGEN 19 MG/DL (7-18); CALCIUM LEVEL 8.4 MG/DL (8.5-10.1); CARBON DIOXIDE LEVEL 32 MEQ/L (21-32); CHLORIDE LEVEL 107 MEQ/L (98-107); CREATININE FOR GFR 0.57 MG/DL (0.70-1.30); GLOMERULAR FILTRATION RATE > 60.0 (>56); GLUCOSE, FASTING 107 MG/DL (70-100); POTASSIUM SERUM 3.9 MEQ/L (3.5-5.1); SODIUM LEVEL 144 MEQ/L (136-145)
[2018-02-08 06:04] LABS: PLATELET ESTIMATE NORMAL (NORMAL)
[2018-02-08 06:46] LABS: BANDS 2 % (< 11); EOSINOPHILS 3 % (0-5); LYMPHOCYTES 20 % (16-52); METAMYELOCYTES 2 % (0-0); MONOCYTES 8 % (0-8); MYELOCYTES 3 % (0-0); NEUTROPHILS 62 % (35-75)
[2018-02-08] MEDS: FORMOTEROL FUMARATE 20 MCG/2 ML INHALATION SOLUTION (PERFOROMIST) INH (07:15)
[2018-02-08] MEDS: BUDESONIDE 0.5 MG/2 ML INHALATION SUSPENSION INH (07:15)
[2018-02-08] MEDS: HumaLOG INSULIN (NovoLOG) PER UNIT SC (07:30)
[2018-02-08] MEDS: risperiDONE 1 MG TAB PO (08:57)
[2018-02-08] MEDS: FLUoxetine 10 MG CAP PO (08:57)
[2018-02-08] MEDS: PANTOPRAZOLE 40MG TAB (PROTONIX) PO (08:57)
[2018-02-08] MEDS: metFORMIN (GLUCOPHAGE) 1000 MG TABLET PO (08:58)
[2018-02-08] MEDS: PERCOCET 5MG/325MG TAB PO (08:58)
[2018-02-08] MEDS: MOM 30ML SUSPENSION UDC PO (08:58)
[2018-02-08] MEDS: HEPARIN SOD (PORCINE) 5000 UNITS/ML VIAL SC (08:58)
[2018-02-08] MEDS: DOCUSATE SODIUM 100 MG CAP PO (08:58)
[2018-02-08] MEDS: METOPROLOL TARTRATE 100 MG TAB PO (08:58)
[2018-02-08] MEDS: ATORVASTATIN 20 MG TAB PO (08:58)
[2018-02-08] MEDS: FLUTICASONE PROP 0.05% NASAL SPRAY 16 GM (FLONASE) (08:59)
== END 2018-02-08 10:46 | disposition home health service (06) | DRG 120 ==
LOC: M OR 05:49 → M ICU 14:38 → M PCU 02-03 23:01
PROVIDERS: Thoracic Surgery (Cardiothoracic Vascular Surgery)
PROC: 0BTC0ZZ Resection of Right Upper Lung Lobe, Open Approach (ICD-10-PCS; principal; 2018-02-02 07:30)
PROC: 0BQ Respiratory System, Repair (ICD-10-PCS; 2018-02-02 07:30)
PROC: 07BB0ZX Excision of Mesenteric Lymphatic, Open Approach, Diagnostic (ICD-10-PCS; 2018-02-02 07:30)
DX: C34.11 Malignant neoplasm of upper lobe, right bronchus or lung (principal); E11.9 Type 2 diabetes mellitus without complications; I10 Essential (primary) hypertension; F32.9 Major depressive disorder, single episode, unspecified; J44.9 Chronic obstructive pulmonary disease, unspecified; E78.5 Hyperlipidemia, unspecified; Z85.21 Personal history of malignant neoplasm of larynx; T81.82XA Emphysema (subcutaneous) resulting from a procedure, initial encounter; E87.5 Hyperkalemia; D72.829 Elevated white blood cell count, unspecified; F17.200 Nicotine dependence, unspecified, uncomplicated

== ENCOUNTER 2018-02-22 11:10 | Outpatient (RCR) | payer OTHER | END 2018-03-07 | LOC: M ONCR 11:10 | DX: C32.9 Malignant neoplasm of larynx, unspecified (principal) | CPT/HCPCS: 77300 ==

== ENCOUNTER → 2018-02-22 | Outpatient (CLI) | payer OTHER | LOC: M ONCR 09:21 | DX: C32.9 Malignant neoplasm of larynx, unspecified (principal) | CPT/HCPCS: 99211 ==

== ENCOUNTER 2018-03-08 11:24 | Outpatient (RCR) | payer OTHER | END 2018-04-07 | LOC: M ONCR 11:24 | DX: C32.9 Malignant neoplasm of larynx, unspecified (principal) | CPT/HCPCS: 77300 ==

== ENCOUNTER → 2018-03-09 | Outpatient (CLI) | payer OTHER | LOC: M RAD 15:03 | DX: C34.11 Malignant neoplasm of upper lobe, right bronchus or lung (principal) | CPT/HCPCS: 71046 ==

== ENCOUNTER 2018-04-08 14:12 | Outpatient (RCR) | payer OTHER | END 2018-05-07 | LOC: M ONCR 14:12 | DX: C32.9 Malignant neoplasm of larynx, unspecified (principal) | CPT/HCPCS: 77386 ==

== ENCOUNTER → 2018-04-29 | Outpatient (CLI) | payer OTHER ==
[2018-04-29 10:19] LABS: ESTIMATED AVERAGE GLUCOSE 134 MG/DL (60-110); HEMOGLOBIN A1c 6.3 %
[2018-04-29 10:36] LABS: ALBUMIN 3.3 GM/DL (3.2-5.2); ALBUMIN/GLOBULIN RATIO 0.92 (1.00-1.93); ALKALINE PHOSPHATASE 87 U/L (45-117); ALT/SGPT 34 U/L (12-78); ANION GAP 7 MEQ/L (8-16); AST/SGOT 26 U/L (7-37); BILIRUBIN,TOTAL 0.3 MG/DL (0.2-1.0); BLOOD UREA NITROGEN 13 MG/DL (7-18); CALCIUM LEVEL 8.1 MG/DL (8.5-10.1); CARBON DIOXIDE LEVEL 30 MEQ/L (21-32); CHLORIDE LEVEL 108 MEQ/L (98-107); CREATININE FOR GFR 0.99 MG/DL (0.70-1.30); GLOMERULAR FILTRATION RATE > 60.0 (>56); GLUCOSE, FASTING 102 MG/DL (70-100); MAGNESIUM LEVEL 1.3 MG/DL (1.8-2.4); POTASSIUM SERUM 4.3 MEQ/L (3.5-5.1); SODIUM LEVEL 145 MEQ/L (136-145); TOTAL PROTEIN 6.9 GM/DL (6.4-8.2)
== END ==
LOC: M LAB 09:37
DX: R25.2 Cramp and spasm (principal)
CPT/HCPCS: 83735

== ENCOUNTER 2018-05-26 13:47 | Outpatient (RCR) | payer OTHER | END 2018-06-07 | LOC: M ST 13:47 | DX: C32.1 Malignant neoplasm of supraglottis (principal) | CPT/HCPCS: 92507 ==

== ENCOUNTER → 2018-06-22 | Outpatient (CLI) | payer OTHER | LOC: M RAD 12:13 | DX: C32.9 Malignant neoplasm of larynx, unspecified (principal) | CPT/HCPCS: 71250 ==

== ENCOUNTER → 2018-07-13 | Outpatient (CLI) | payer OTHER | LOC: M ONCR 14:09 | DX: C32.9 Malignant neoplasm of larynx, unspecified (principal) | CPT/HCPCS: 99211 ==

== ENCOUNTER → 2018-08-24 | Outpatient (CLI) | payer OTHER | LOC: M RAD 12:26 | DX: C32.9 Malignant neoplasm of larynx, unspecified (principal) | CPT/HCPCS: 71250 ==

== ENCOUNTER → 2018-09-13 | Outpatient (CLI) | payer OTHER | LOC: M PLARAD 12:49 | DX: C32.1 Malignant neoplasm of supraglottis (principal) | CPT/HCPCS: 78815 ==

== ENCOUNTER → 2018-09-15 | Outpatient (CLI) | payer OTHER | LOC: M RAD 14:22 | DX: M16.12 Unilateral primary osteoarthritis, left hip (principal) | CPT/HCPCS: 73502 ==

== ENCOUNTER → 2018-10-04 | Outpatient (REF) | payer OTHER ==
[2018-10-04 19:35] LABS: BASO % 0.6 % (0.0-1.0); EOS % 0.6 % (0.0-3.0); HEMATOCRIT 39.8 % (42.0-52.0); HEMOGLOBIN 13.8 g/dl (13.5-17.5); IMMATURE GRANULOCYTE % 0.4 % (0-3.0); LYMPH # 1.3 10^3/uL (1.5-4.5); LYMPH % 18.4 % (24.0-44.0); MEAN CORPUSCULAR HEMOGLOBIN 32.2 pg (27.0-33.0); MEAN CORPUSCULAR HGB CONC 34.7 g/dl (32.0-36.5); MONO # 0.8 10^3/uL (0.0-0.8); MONO % 11.4 % (0.0-5.0); NEUTROPHILS # 4.7 10^3/uL (1.8-7.7); NEUTROPHILS % 68.6 % (36.0-66.0); PLATELET COUNT, AUTOMATED 217 10^3/uL (150-450); RED BLOOD COUNT 4.28 10^6/uL (4.30-6.10); RED CELL DISTRIBUTION WIDTH 12.4 % (11.5-14.5); WHITE BLOOD COUNT 6.9 10^3/uL (4.0-10.0)
[2018-10-04 19:54] LABS: ESTIMATED AVERAGE GLUCOSE 123 MG/DL (60-110); HEMOGLOBIN A1c 5.9 %
[2018-10-04 20:16] LABS: ALBUMIN 4.2 GM/DL (3.2-5.2); ALBUMIN/GLOBULIN RATIO 1.35 (1.00-1.93); ALKALINE PHOSPHATASE 78 U/L (45-117); ALT/SGPT 28 U/L (12-78); ANION GAP 8 MEQ/L (8-16); AST/SGOT 20 U/L (7-37); BLOOD UREA NITROGEN 17 MG/DL (7-18); CALCIUM LEVEL 9.7 MG/DL (8.5-10.1); CARBON DIOXIDE LEVEL 27 MEQ/L (21-32); CHLORIDE LEVEL 106 MEQ/L (98-107); CHOLESTEROL LEVEL 155 MG/DL (<200); CHOLESTEROL RISK RATIO 3.163 (<5); CREATININE FOR GFR 1.18 MG/DL (0.70-1.30); GLOMERULAR FILTRATION RATE > 60.0 (>56); GLUCOSE, FASTING 100 MG/DL (70-100); HDL CHOLESTEROL 49 MG/DL (>40); LDL CHOLESTEROL 77 MG/DL (<100); NON-HDL-C 106 MG/DL; SODIUM LEVEL 141 MEQ/L (136-145); TOTAL PROTEIN 7.3 GM/DL (6.4-8.2); TRIGLYCERIDES LEVEL 143 MG/DL (<150)
[2018-10-04 20:19] LABS: TOTAL 25(OH) VITAMIN D 46.7 NG/ML (30.0-100.0)
== END ==
LOC: M LAB REF 19:05
DX: Z13.9 Encounter for screening, unspecified (principal)

== ENCOUNTER 2018-11-28 08:04 | Outpatient (RCR) | payer OTHER ==
[~2018-11-28 08:04] MED LIST changes: +ARNU1INH INH; +ATOR1TAB21 PO; +BUDE0.5S6 INH; +CALC12502; +CELE20TA; +CELE20TA OR; +FLON1SPR; +FOLI1TAB86 PO; +LISI10TA4; +LISI10TA4 OR; +LOPR1TAB7 PO; +METF-877 PO; +METF1000 PO; +METO100T PO; +NEBUMIS2 XX; +NICO21PAT TD; +NO MEDICATIONS; +PERCOCET PO; -PROHANCE 279.3MG/ML 15ML VIAL (A9576) As Ordered; +PROZ10CA7 PO; +RISP0.5T3 PO; +RISP1TAB; +RISP1TAB OR; +RISP1TAB42 PO; +RISP2TAB3 PO; +SIMV40TA2; +TEST1GEL6 TD; +TRAZ100T OR; +TRAZ50TA; +TRAZ50TA2 PO; +VITA100T2 PO; +VITA500047 PO; +VITAMIN D50000 UNT; +VITMTA PO; +ZOCO40TA OR; +androgel
== END 2018-12-08 ==
LOC: M ST 08:04
PROVIDERS: ATTEND Otolaryngology
DX: Z48.813 Encounter for surgical aftercare following surgery on the respiratory system (principal)

== ENCOUNTER 2019-01-18 08:49 | Outpatient (RCR) | payer OTHER | END 2019-02-05 | LOC: M ST 08:49 | PROVIDERS: ATTEND Otolaryngology | DX: Z90.02 Acquired absence of larynx (principal) ==

== ENCOUNTER → 2019-01-18 | Outpatient (CLI) | payer OTHER ==
--- NOTE | 2019-01-23 10:28 | RADONC ---
RADIATION ONCOLOGY FOLLOWUP NOTE DATE: 01/18/2019 CHART NUMBER: [id number] DIAGNOSIS: Laryngeal carcinoma. STAGE: IV A, [id number]. ECOG PERFORMANCE STATUS: 0 FOLLOWUP NOTE: Mr. 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 The patient presents today reporting that he is doing quite well with no complaints at this time related to his radiation therapy or disease. He is having no difficulty swallowing or sore throat. He has no difficulty breathing or other problems. The patient continues to have difficulties with speech secondary to his tracheostomy. REVIEW OF SYSTEMS: The patient's review of systems is positive for his tracheostomy, but it is otherwise noncontributory. Denies nausea, vomiting, fevers, chills, night sweats, diplopia, headaches, anxiety or depression, anorexia, weight loss, visual disturbances, chest pain, urinary or bowel difficulties, bone pain, or neurological problems. He denies standard review of systems. PHYSICAL EXAMINATION: The patient is a well-developed, well-nourished white male in no acute distress. He has gained 18 pounds since completion of treatment. HEENT exam is normocephalic, atraumatic. Extraocular movements are intact. Oral cavity examination fails to reveal any lesions, nodularity or evidence of disease. There is no palpable cervical, supraclavicular, infraclavicular, axillary lymphadenopathy present. His tracheostomy site is free of infection or other issues. His lungs are clear to auscultation and percussion. His heart has regular rate and rhythm. ASSESSMENT: The patient is being seen closely by his head and neck surgeon every 3 months. In addition, he is being followed in [place]. On top of that the patient is being followed closely by his thoracic surgeon Dr. Gaffney for his lung cancer, which was resected requiring no postoperative radiation. In light of his close followup every few months with his head, neck surgeon and thoracic surgeon as well as other physicians, I have discharged him from our followup except on a p.r.n. basis. The patient has my cell phone number and number here as well as the number of our nurse navigator so if I could be of any assistance in the future or answer any questions whatsoever. cc: [place] Farr MD Norman Weir, MD
== END ==
LOC: M ONCR 12:40
PROVIDERS: ATTEND Radiology Radiation Oncology
DX: C32.9 Malignant neoplasm of larynx, unspecified (principal); Z85.118 Personal history of other malignant neoplasm of bronchus and lung

== ENCOUNTER → 2019-03-16 | Outpatient (CLI) | payer OTHER ==
[~2019-03-16] MED LIST changes: +ISOVUE-370 76% 100ML VIAL (Q9967) As Ordered ONE
--- NOTE | 2019-03-16 14:10 | REP ---
CT STUDY OF THE NECK SOFT TISSUES WITH IV CONTRAST: HISTORY: Restage laryngeal carcinoma. Restaging lung carcinoma. The patient is status post laryngectomy left thyroid lobectomy in November 2017 for moderately differentiated squamous cell carcinoma. Completed concurrent chemo and radiation therapy. CT CONTRAST DOSE: 100 mL of intravenous Isovue 370. Comparison neck CT study is from November 14, 2017. CT FINDINGS: The larynx is been removed. Tracheostomy stoma is unremarkable. There is no evidence of neck mass or adenopathy. Parotid glands are normal and symmetric. Small submandibular glands are seen symmetrically. No vascular abnormality is seen. No bony destructive lesion is seen. There are degenerative spondylosis changes in the cervical spine as before. The C5-6 disc appears to be fused. IMPRESSION: Status post laryngectomy. No neck mass or adenopathy seen. Electronically Signed by Ward Robledo MD 03/16/2019 03:12 P
--- NOTE | 2019-03-17 04:35 | REP ---
Clinical: History of laryngeal/lung carcinoma for restaging. Technique: Axial contrast enhanced images from the thoracic inlet to the upper abdomen with coronal and sagittal re-formations using 100 ml Isovue 370 intravenous contrast material. Comparison: 08/24/2018. Findings: The bilateral lung reese are well-aerated and demonstrate mild chronic COPD/emphysematous changes. Postsurgical changes involving the right hemithorax and small focal area of scarring primarily noted along the lateral aspect of the right lower lung zone remains stable. There are new scattered small nodular densities with surrounding subtle ground-glass opacity and interstitial changes noted in the left lower lobe and differential diagnosis includes focal pneumonitis versus metastatic disease given the patient's history. No further areas of consolidation, nodule or mass lesion noted. Mediastinum demonstrates atherosclerotic changes to the thoracic aorta and coronary arteries without aortic aneurysm or dissection. No cardiomegaly or pericardial effusion. No significant adenopathy. Osseous structures without focal abnormality. Impression: Subtle area of scattered nodularity with surrounding ground-glass opacity and interstitial prominence in the left lower lobe represents an acute, new finding. Differential diagnosis includes acute pneumonitis and metastatic disease. Correlation and follow up required. Electronically Signed by Jaime Concepcion MD 03/17/2019 04:27 A
== END ==
LOC: M RAD 12:43
PROVIDERS: ATTEND Internal Medicine Hematology & Oncology
DX: R91.8 Other nonspecific abnormal finding of lung field (principal); Z90.02 Acquired absence of larynx; C32.9 Malignant neoplasm of larynx, unspecified
CPT/HCPCS: 70491; 71260; Q9967

== ENCOUNTER → 2019-04-10 | Outpatient (CLI) | payer OTHER ==
[~2019-04-10] MED LIST changes: -ISOVUE-370 76% 100ML VIAL (Q9967) As Ordered ONE
[2019-04-10 09:32] LABS: BASO # 0.1 10^3/uL (0.0-0.2); BASO % 0.8 % (0.0-1.0); EOS # 0.1 10^3/uL (0.0-0.50); EOS % 1.5 % (0.0-3.0); HEMATOCRIT 40.9 % (42.0-52.0); HEMOGLOBIN 13.5 g/dl (13.5-17.5); LYMPH # 1.2 10^3/uL (1.5-4.5); LYMPH % 18.6 % (24.0-44.0); MEAN CORPUSCULAR HEMOGLOBIN 31.8 pg (27.0-33.0); MEAN CORPUSCULAR VOLUME 96.5 fl (80.0-96.0); MONO # 0.8 10^3/uL (0.0-0.8); MONO % 12.2 % (0.0-5.0); NEUTROPHILS # 4.4 10^3/uL (1.8-7.7); NEUTROPHILS % 66.3 % (36.0-66.0); PLATELET COUNT, AUTOMATED 227 10^3/uL (150-450); RED BLOOD COUNT 4.24 10^6/uL (4.30-6.10); WHITE BLOOD COUNT 6.7 10^3/uL (4.0-10.0)
[2019-04-10 09:59] LABS: ALBUMIN 3.8 GM/DL (3.2-5.2); ALT/SGPT 37 U/L (12-78); BILIRUBIN,TOTAL 0.6 MG/DL (0.2-1.0); BLOOD UREA NITROGEN 18 MG/DL (7-18); CALCIUM LEVEL 9.7 MG/DL (8.5-10.1); CARBON DIOXIDE LEVEL 26 MEQ/L (21-32); CHLORIDE LEVEL 109 MEQ/L (98-107); CHOLESTEROL LEVEL 149 MG/DL (<200); CHOLESTEROL RISK RATIO 2.709 (<5); CREATININE FOR GFR 1.04 MG/DL (0.70-1.30); FREE T4 1.38 NG/DL (0.76-1.46); GLOMERULAR FILTRATION RATE > 60.0 (>56); GLUCOSE, FASTING 93 MG/DL (70-100); HDL CHOLESTEROL 55 MG/DL (>40); HEMOGLOBIN A1c 5.7 %; LDL CHOLESTEROL 76 MG/DL (<100); NON-HDL-C 94 MG/DL; POTASSIUM SERUM 4.5 MEQ/L (3.5-5.1); SODIUM LEVEL 142 MEQ/L (136-145); THYROID STIMULATING HORMONE 0.638 uIU/ML (0.358-3.740); TRIGLYCERIDES LEVEL 90 MG/DL (<150)
== END ==
LOC: M LAB 08:19
PROVIDERS: ATTEND Nurse Practitioner Family
DX: Z13.9 Encounter for screening, unspecified (principal); E03.9 Hypothyroidism, unspecified

== ENCOUNTER → 2019-04-11 | Outpatient (CLI) | payer OTHER ==
--- NOTE | 2019-04-12 16:06 | REP ---
HISTORY: Restage lung and head and neck carcinoma. COMPARISON: PET/CT 11/29/2018 showed only a focus of hypermetabolic activity seen in the soft tissues medial to the left femoral neck of uncertain etiology. After the intravenous administration of 9.54 mCi of FDG-18 triplane whole body PET/CT was performed from the skull base to the mid thigh. Prior CT scan of the chest 03/16/2019 showed scattered nodular and ground glass opacities in the left lower lobe representing a change from other prior CTs. Once again, there is no evidence of abnormal hypermetabolic activity seen in the neck, chest, abdomen or pelvis. Scattered areas of increased metabolism are seen in multiple muscle groups consistent with improper resting prior to the examination and after the FDG administration. The focus of hypermetabolic activity seen in the medial left thigh is less conspicuous but persists. Again, its exact etiology is uncertain. When the CT component of today's PET/CT is compared to the CT of 03/16/2019, the nodular and ground glass opacity seen on the left lung lower lobe have significantly improved. IMPRESSION: Nonspecific focus of hypermetabolic activity seen in the left medial thigh which is unchanged and of uncertain etiology. It could be secondary to muscular activity since increased metabolism is seen in other muscle groups on today's exam. This is secondary to the lack of proper resting postinjection prior to imaging. Electronically Signed by Oracio Hunt DO 04/12/2019 04:59 P
== END ==
LOC: M PLARAD 14:46
PROVIDERS: ATTEND Internal Medicine Hematology & Oncology
DX: C34.12 Malignant neoplasm of upper lobe, left bronchus or lung (principal)
CPT/HCPCS: 78815; A9552

== ENCOUNTER 2019-04-24 10:02 | Outpatient (RCR) | payer OTHER | END 2019-05-07 | LOC: M ST 10:02 | PROVIDERS: ATTEND Otolaryngology | DX: Z90.02 Acquired absence of larynx (principal) ==

== ENCOUNTER → 2019-06-30 | Outpatient (CLI) | payer OTHER ==
[~2019-06-30] MED LIST changes: +LEVO125T4 PO; +OMEP-218 PO
== END ==
LOC: M ST 08:23
PROVIDERS: ATTEND Otolaryngology
DX: Z90.02 Acquired absence of larynx (principal); C34.12 Malignant neoplasm of upper lobe, left bronchus or lung

== ENCOUNTER → 2019-07-27 | Outpatient (CLI) | payer OTHER ==
[~2019-07-27] MED LIST changes: -LEVO125T4 PO
--- NOTE | 2019-07-28 06:18 | REP ---
Clinical: History of lung cancer. Technique: Axial noncontrast images from the thoracic inlet to the upper abdomen with coronal and sagittal re-formations. Comparison: 03/16/2019. Findings: Postsurgical changes involving the left hemithorax are again noted. The lung reese are essentially well-aerated and clear. No acute nodule or mass lesion. No consolidation. No effusion. No pneumothorax. Tracheobronchial tree is patent. No adenopathy. Atherosclerotic changes to the thoracic aorta and coronary arteries noted without aortic aneurysm or cardiomegaly. No pericardial effusion. Surrounding musculoskeletal structures without focal osseous abnormality. Limited upper abdomen demonstrates normal bilateral adrenal glands. Impression: Stable chronic postsurgical changes involving the right hemithorax. No acute mediastinal or pleuroparenchymal process appreciated. Electronically Signed by Jaime Concepcion MD 07/28/2019 06:09 A
== END ==
LOC: M RAD 08:45
PROVIDERS: ATTEND Internal Medicine Pulmonary Disease
DX: R91.8 Other nonspecific abnormal finding of lung field (principal)

== ENCOUNTER → 2019-08-07 | Outpatient (RCR) | payer OTHER | LOC: M ST 10:19 | PROVIDERS: ATTEND Otolaryngology | DX: Z93.0 Tracheostomy status (principal) ==

== ENCOUNTER → 2019-09-07 | Outpatient (CLI) | payer OTHER ==
[2019-09-07 11:32] LABS: BASO # 0.1 10^3/uL (0.0-0.2); BASO % 1.1 % (0.0-1.0); EOS # 0.1 10^3/uL (0.0-0.5); HEMATOCRIT 40.5 % (42.0-52.0); LYMPH # 1.3 10^3/uL (1.5-5.0); LYMPH % 21.7 % (24.0-44.0); MEAN CORPUSCULAR HEMOGLOBIN 29.3 pg (27.0-33.0); MEAN CORPUSCULAR HGB CONC 32.1 g/dl (32.0-36.5); MEAN CORPUSCULAR VOLUME 91.2 fl (80.0-96.0); MONO # 0.6 10^3/uL (0.0-0.8); MONO % 9.7 % (0.0-5.0); PLATELET COUNT, AUTOMATED 286 10^3/uL (150-450); RED BLOOD COUNT 4.44 10^6/uL (4.30-6.10); WHITE BLOOD COUNT 6.1 10^3/uL (4.0-10.0)
[2019-09-07 12:15] LABS: ALBUMIN 3.8 GM/DL (3.2-5.2); ALT/SGPT 37 U/L (12-78); BILIRUBIN,TOTAL 0.5 MG/DL (0.2-1.0); BLOOD UREA NITROGEN 17 MG/DL (7-18); CALCIUM LEVEL 9.7 MG/DL (8.8-10.2); CARBON DIOXIDE LEVEL 26 MEQ/L (21-32); CHLORIDE LEVEL 109 MEQ/L (98-107); CHOLESTEROL LEVEL 191 MG/DL (<200); CHOLESTEROL RISK RATIO 2.768 (<5); CREATININE FOR GFR 1.27 MG/DL (0.70-1.30); FREE T4 0.51 NG/DL (0.76-1.46); GLOMERULAR FILTRATION RATE > 60.0 (>49); GLUCOSE, FASTING 93 MG/DL (70-100); HDL CHOLESTEROL 69 MG/DL (>40); LDL CHOLESTEROL 103 MG/DL (<100); NON-HDL-C 122 MG/DL; POTASSIUM SERUM 4.3 MEQ/L (3.5-5.1); SODIUM LEVEL 141 MEQ/L (136-145); TOTAL PROTEIN 7.3 GM/DL (6.4-8.2); TRIGLYCERIDES LEVEL 94 MG/DL (<150)
[2019-09-07 12:54] LABS: HEMOGLOBIN A1c 5.8 %
== END ==
LOC: M LAB 09:33
PROVIDERS: ATTEND Nurse Practitioner Family
DX: I10 Essential (primary) hypertension (principal); E78.5 Hyperlipidemia, unspecified; E11.9 Type 2 diabetes mellitus without complications; E03.9 Hypothyroidism, unspecified

== ENCOUNTER → 2019-09-26 | Outpatient (REF) | payer OTHER ==
[2019-09-26 19:40] LABS: FREE T4 1.02 NG/DL (0.76-1.46); THYROID STIMULATING HORMONE 10.2 uIU/ML (0.358-3.740)
[2019-09-26 19:42] LABS: PROLACTIN 11.1 NG/ML (2.1-17.7); TOTAL T3 92.5 NG/DL (60.0-181.0)
[2019-09-29 00:08] LABS: TESTOSTERONE FREE (DIRECT) 1.8 pg/mL (6.6-18.1)
== END ==
LOC: M LAB REF 18:44
PROVIDERS: ATTEND Nurse Practitioner Family
DX: E03.9 Hypothyroidism, unspecified (principal)

== ENCOUNTER 2019-09-29 14:04 | Outpatient (RCR) | payer OTHER | END 2019-10-07 | LOC: M ST 14:04 | PROVIDERS: ATTEND Otolaryngology | DX: Z51.89 Encounter for other specified aftercare (principal) ==

== ENCOUNTER → 2019-10-26 | Outpatient (REF) | payer OTHER, MEDICAID ==
[~2019-10-26] MED LIST changes: +LEVO125T4 PO
[2019-10-26 12:18] LABS: FREE T4 1.41 NG/DL (0.76-1.46); THYROID STIMULATING HORMONE 0.589 uIU/ML (0.358-3.740)
== END ==
LOC: M LAB REF 11:41
PROVIDERS: ATTEND Nurse Practitioner Family
DX: E03.9 Hypothyroidism, unspecified (principal)

== ENCOUNTER 2019-11-06 10:00 | Outpatient (RCR) | payer OTHER | END 2019-11-07 | LOC: M ST 10:00 | PROVIDERS: ATTEND Otolaryngology | DX: Z51.89 Encounter for other specified aftercare (principal); Z90.02 Acquired absence of larynx ==

== ENCOUNTER 2019-11-06 14:26 | Emergency (ER) | payer OTHER ==
[~2019-11-06] VITALS: Ht 149.9 cm; Wt 64.2 kg
--- NOTE | 2019-11-06 15:44 | REP ---
Clinical: Possible aspiration pneumonia . Comparison: 03/09/2018 . Technique: PA and lateral. Findings: The mediastinum and cardiac silhouette are normal. The lung reese are clear and without acute consolidation, effusion, or pneumothorax. The skeletal structures are intact and normal. Impression: 1. No acute cardiopulmonary process. Electronically Signed by Jaime Concepcion MD 11/06/2019 03:35 P
[2019-11-06 16:24] VITALS: BP 145/79
== END 2019-11-06 16:37 | disposition home or self-care (01) ==
LOC: M ED 14:26
DX: R11.10 Vomiting, unspecified (principal); E11.9 Type 2 diabetes mellitus without complications; I10 Essential (primary) hypertension; J44.9 Chronic obstructive pulmonary disease, unspecified; E78.9 Disorder of lipoprotein metabolism, unspecified; F33.9 Major depressive disorder, recurrent, unspecified; F41.9 Anxiety disorder, unspecified; Z79.899 Other long term (current) drug therapy; Z79.84 Long term (current) use of oral hypoglycemic drugs; Z79.890 Hormone replacement therapy; Z88.8 Allergy status to other drugs, medicaments and biological substances; F17.210 Nicotine dependence, cigarettes, uncomplicated

== ENCOUNTER 2019-11-14 10:59 | Day surgery (SDC) | payer OTHER ==
[~2019-11-14] VITALS: Ht 149.9 cm; Wt 62.6 kg
[2019-11-14] MEDS ORDERED: NS 1,000 ML IV ONE (11:30)
[2019-11-14] MEDS ORDERED: PROPOFOL 500 MG/50 ML VIAL As Ordered ONE (11:54)
[2019-11-14] MEDS ORDERED: LIDOCAINE 2% INJ 100 MG/5 ML SDV (FOR ANES.) As Ordered ONE (11:58)
[2019-11-14] MEDS ORDERED: fentaNYL 100 MCG/2 ML INJECTION (J3010) As Ordered ONE (12:03)
--- NOTE | 2019-11-14 12:49 | ROOR ---
Patient Name: Gee Hull Procedure Date: 11/14/2019 12:29 PM Date of : 1960 Age: 59 Room: [facility] Gender: Male Note Status: Finalized Procedure: Upper GI endoscopy Indications: Abdominal pain in the right upper quadrant, Heartburn Providers: Dmitry KEITH MD Referring MD: Rola GUZMAN NP Requesting Provider: Medicines: Monitored Anesthesia Care Complications: No immediate complications. Procedure: Pre-Anesthesia Assessment: - The heart rate, respiratory rate, oxygen saturations, blood pressure, adequacy of pulmonary ventilation, and response to care were monitored throughout the procedure. The Endoscope was introduced through the mouth, and advanced to the second part of duodenum. The upper GI endoscopy was accomplished without difficulty. The patient tolerated the procedure well. Findings: A tracheoesophageal prosthesis was found in the proximal esophagus. The Z-line was variable and was found 39 cm from the incisors. Small Hiatal Hernia. The entire examined stomach was normal. The examined duodenum was normal. Impression: - Tracheoesophageal prosthesis seen. - Z-line variable, 39 cm from the incisors. - Normal stomach with small Hiatal Hernia. - Normal examined duodenum. - No specimens collected. Recommendation: - Continue present medications. Dmitry Keith MD Dmitry KEITH MD 11/14/2019 12:49:19 PM Electronically signed by Dmitry KEITH MD Number of Addenda: 0 Note Initiated On: 11/14/2019 12:29 PM Estimated Blood Loss: Estimated blood loss: none.
--- NOTE | 2019-11-14 13:06 | ROOR ---
Patient Name: Gee Hull Procedure Date: 11/14/2019 12:29 PM Date of : 1960 Age: 59 Room: [facility] Gender: Male Note Status: Finalized Procedure: Colonoscopy Indications: Screening for colorectal malignant neoplasm Providers: Dmitry KEITH MD Referring MD: Rola GUZMAN NP Requesting Provider: Medicines: Monitored Anesthesia Care Complications: No immediate complications. Procedure: Pre-Anesthesia Assessment: - The heart rate, respiratory rate, oxygen saturations, blood pressure, adequacy of pulmonary ventilation, and response to care were monitored throughout the procedure. The Colonoscope was introduced through the anus and advanced to the terminal ileum, with identification of the appendiceal orifice and IC valve. The colonoscopy was performed without difficulty. The patient tolerated the procedure well. The quality of the bowel preparation was good. Findings: The perianal and digital rectal examinations were normal. A 5 mm polyp was found in the splenic flexure. The polyp was sessile. The polyp was removed with a cold snare. Resection and retrieval were complete. A few medium-mouthed diverticula were found in the sigmoid colon. Internal hemorrhoids were found during retroflexion. The hemorrhoids were medium-sized. The exam was otherwise without abnormality on direct and retroflexion views. Impression: - One 5 mm polyp at the splenic flexure, removed with a cold snare. Resected and retrieved. - Mild diverticulosis in the sigmoid colon. - Internal hemorrhoids. - The examination was otherwise normal on direct and retroflexion views. Recommendation: - Telephone endoscopist for pathology results in 2 weeks. - If the pathology report reveals adenomatous tissue, then repeat the colonoscopy for surveillance in 5 years. - If the pathology report indicates hyperplastic polyp, then repeat colonoscopy for screening purposes in 10 years. Dmitry Keith MD Dmitry KEITH MD 11/14/2019 1:06:53 PM Electronically signed by Dmitry KEITH MD Number of Addenda: 0 Note Initiated On: 11/14/2019 12:29 PM Estimated Blood Loss: Estimated blood loss: none.
[2019-11-14 13:10] VITALS: BP 115/74
== END 2019-11-14 13:44 | disposition home or self-care (01) ==
LOC: M OPP 10:59
PROVIDERS: ATTEND Internal Medicine Gastroenterology
DX: Z12.11 Encounter for screening for malignant neoplasm of colon (principal); D12.3 Benign neoplasm of transverse colon; K64.8 Other hemorrhoids; K57.30 Diverticulosis of large intestine without perforation or abscess without bleeding; Z96.3 Presence of artificial larynx; K22.8 Other specified diseases of esophagus; R10.11 Right upper quadrant pain; R12 Heartburn; Z79.84 Long term (current) use of oral hypoglycemic drugs; Z79.899 Other long term (current) drug therapy; Z88.8 Allergy status to other drugs, medicaments and biological substances
CPT/HCPCS: 43235; 45385; 88305; J3010

== ENCOUNTER 2019-12-22 08:42 | Outpatient (RCR) | payer OTHER | END 2020-01-06 | LOC: M ST 08:42 | PROVIDERS: ATTEND Otolaryngology | DX: Z47.89 Encounter for other orthopedic aftercare (principal) ==

== ENCOUNTER → 2019-12-28 | Outpatient (REF) | payer OTHER, MEDICAID ==
[2019-12-28 13:57] LABS: BASO # 0.1 10^3/uL (0.0-0.2); BASO % 0.8 % (0.0-1.0); EOS # 0.1 10^3/uL (0.0-0.5); EOS % 1.2 % (0.0-3.0); HEMOGLOBIN 12.7 g/dl (13.5-17.5); LYMPH # 1.2 10^3/uL (1.5-5.0); LYMPH % 16.5 % (24.0-44.0); MEAN CORPUSCULAR HEMOGLOBIN 27.9 pg (27.0-33.0); MEAN CORPUSCULAR HGB CONC 31.8 g/dl (32.0-36.5); MEAN CORPUSCULAR VOLUME 87.9 fl (80.0-96.0); MONO # 0.7 10^3/uL (0.0-0.8); MONO % 10.2 % (0.0-5.0); NEUTROPHILS # 5.2 10^3/uL (1.5-8.5); PLATELET COUNT, AUTOMATED 287 10^3/uL (150-450); RED BLOOD COUNT 4.55 10^6/uL (4.30-6.10); WHITE BLOOD COUNT 7.3 10^3/uL (4.0-10.0)
[2019-12-28 14:11] LABS: ALBUMIN 3.9 GM/DL (3.2-5.2); ALT/SGPT 45 U/L (12-78); BILIRUBIN,TOTAL 0.5 MG/DL (0.2-1.0); BLOOD UREA NITROGEN 22 MG/DL (7-18); CALCIUM LEVEL 9.3 MG/DL (8.8-10.2); CARBON DIOXIDE LEVEL 27 MEQ/L (21-32); CHLORIDE LEVEL 113 MEQ/L (98-107); CHOLESTEROL LEVEL 174 MG/DL (<200); CREATININE FOR GFR 1.12 MG/DL (0.70-1.30); FREE T4 1.24 NG/DL (0.76-1.46); GLOMERULAR FILTRATION RATE > 60.0 (>49); GLUCOSE, FASTING 115 MG/DL (70-100); HDL CHOLESTEROL 60 MG/DL (>40); LDL CHOLESTEROL 92 MG/DL (<100); NON-HDL-C 114 MG/DL; POTASSIUM SERUM 4.1 MEQ/L (3.5-5.1); SODIUM LEVEL 145 MEQ/L (136-145); TOTAL PROTEIN 7.2 GM/DL (6.4-8.2); TRIGLYCERIDES LEVEL 112 MG/DL (<150)
== END ==
LOC: M LAB REF 13:25
PROVIDERS: ATTEND Nurse Practitioner Family
DX: Z13.9 Encounter for screening, unspecified (principal); E03.9 Hypothyroidism, unspecified; E11.9 Type 2 diabetes mellitus without complications; I10 Essential (primary) hypertension; E78.5 Hyperlipidemia, unspecified

== ENCOUNTER → 2020-01-22 | Outpatient (CLI) | payer MEDICAID, OTHER ==
[~2020-01-22] MED LIST changes: +ARNU1INH PO; +ISOVUE-370 76% 100ML VIAL (Q9967) As Ordered ONE; +LISI-1046 PO; +MONT10TA4 PO; +TAMS1CAP17 PO
--- NOTE | 2020-01-22 09:43 | REPVR ---
PROCEDURE INFORMATION: Exam: CT Neck With Contrast Exam date and time: 01/22/2020 8:49 AM Age: 59 years old Clinical indication: Condition or disease; Cancer; Laryngeal; Additional info: Lung CA, laryngeal CA, surveillance TECHNIQUE: Imaging protocol: Computed tomography images of the neck with intravenous contrast. Radiation optimization: All CT scans at this facility use at least one of these dose optimization techniques: automated exposure control; mA and/or kV adjustment per patient size (includes targeted exams where dose is matched to clinical indication); or iterative reconstruction. Contrast material: ISOVUE 370; Contrast volume: 100 ml; Contrast route: IV; COMPARISON: CT Neck with contrast 03/16/2019 1:15 PM FINDINGS: Nasopharynx: Unremarkable. Oropharynx: Unremarkable. No significant tonsillar enlargement. Hypopharynx: Unremarkable. Larynx: There are stable complex postoperative changes reflecting laryngectomy. Tracheostomy stoma appears unchanged Retropharyngeal space: Unremarkable. Submandibular/Parotid glands: Normal. Glands are normal in size. Thyroid: Normal. No enlarged or calcified nodules. Lymph nodes: Unremarkable. No lymphadenopathy. Trachea: Unremarkable. Lungs: Unremarkable as visualized. Bones/joints: There is mild reversal of the normal cervical lordosis. There is severe intervertebral disc space loss C4/5. There is partial osseous fusion of the C5-C6 bodies. No acute fracture. Soft tissues: Unremarkable. No significant soft tissue swelling. IMPRESSION: Postoperative changes reflecting laryngectomy, unchanged. No new or progressive abnormality. Electronically signed by: Marisol Calzada On 01/22/2020 09:43:08 AM
== END ==
LOC: M RAD 08:12
PROVIDERS: ATTEND Internal Medicine Hematology & Oncology
DX: C34.90 Malignant neoplasm of unspecified part of unspecified bronchus or lung (principal)
CPT/HCPCS: 70491; Q9967

== ENCOUNTER → 2020-01-29 | Outpatient (CLI) | payer OTHER ==
[~2020-01-29] MED LIST changes: -ISOVUE-370 76% 100ML VIAL (Q9967) As Ordered ONE
--- NOTE | 2020-01-29 10:34 | REP ---
Clinical: History of malignant neoplasm. Technique: Axial noncontrast images from the thoracic inlet to the upper abdomen with coronal and sagittal re-formations. Comparison: 07/27/2019. Findings: Tracheostomy noted. Airway is patent. Postsurgical changes including prior right upper lobectomy are again noted and stable. The bilateral lung reese are well-aerated and without consolidation, significant nodule, or mass. No pleural effusion. No pneumothorax. No obvious adenopathy. The mediastinum demonstrates atherosclerotic changes to the thoracic aorta and coronary arteries without aortic aneurysm or cardiomegaly. No pericardial effusion. Hiatal hernia noted. The surrounding osseous structures without acute abnormality. Impression: Chronic stable postsurgical changes involving the right hemithorax. No acute mediastinal or pleuroparenchymal process. Hiatal hernia. Tracheostomy. Electronically Signed by Jaime Concepcion MD 01/29/2020 10:26 A
== END ==
LOC: M RAD 10:08
PROVIDERS: ATTEND Internal Medicine Pulmonary Disease
DX: Z85.118 Personal history of other malignant neoplasm of bronchus and lung (principal); K44.9 Diaphragmatic hernia without obstruction or gangrene; Z93.0 Tracheostomy status

== ENCOUNTER → 2020-03-08 | Outpatient (CLI) | payer OTHER | LOC: M LAB 09:10 | PROVIDERS: ATTEND Internal Medicine Gastroenterology | DX: D50.9 Iron deficiency anemia, unspecified (principal) ==

== ENCOUNTER → 2020-03-20 | Outpatient (CLI) | payer OTHER ==
[~2020-03-20] MED LIST changes: +E-Z-GAS II EFFERVESCENT PACKET (SODIUM BICARB./CITRIC ACID/SIMETHICONE) As Ordered ONE; +E-Z-HD 98% w/w 340GM SUSP BTL As Ordered ONE; +E-Z-PAQUE 96% w/w SUSP 176GM BTL As Ordered ONE; -LISI-1046 PO; +LISI2.5T2 PO
--- NOTE | 2020-03-20 16:37 | REP ---
UPPER GI SINGLE CONTRAST AND SMALL BOWEL FOLLOW-THROUGH The procedure was performed under the direct supervision of Dr. Arcos. The images were reviewed with Dr. Arcos. The build master film shows no organomegaly or pathological masses. The test gas pattern is nonspecific. Liquid barium was administered in the erect and prone oblique positions in order to perform a single contrast upper GI examination. Additionally liquid barium was given at the end of the examination in order to perform a small bowel follow-through. The oral and pharyngeal stages of deglutition are unremarkable. Note is made of a tracheostomy in place. There is no esophagitis stricture or mucosal ring. There is a hiatal hernia. There is gastroesophageal reflux demonstrated to the level of the thoracic inlet. The stomach is grossly normal. The rugal folds are smooth and regular. There is no evidence of gastritis neoplasm or ulcer disease. There are thickened folds in the duodenum which likely represents duodenitis. There is no alisia ulcer identified. The visualized portion of the proximal small bowel appears normal in course and caliber. The barium column was followed through the small bowel to the level of the terminal ileum. Small bowel transit time is approximately 1 hour. During fluoroscopy gentle palpation shows all loops are freely movable and pliable. There are no fixed or angulated loops. The small bowel mucosal pattern is normal in course and caliber. There is no transition to suggest a partial small-bowel obstruction. Spot filming of the terminal ileum shows it to be unremarkable. Impression: There is a hiatal hernia. There is gastroesophageal reflux demonstrated to the level of the thoracic inlet. 2.4 minutes of fluoroscopy time was utilized for this procedure. Electronically Signed by MILA Rodarte 03/20/2020 04:06 P Electronically Signed by Macho Arcos MD 03/20/2020 04:29 P
== END ==
LOC: M RAD 08:26
PROVIDERS: ATTEND Internal Medicine Gastroenterology
DX: K44.9 Diaphragmatic hernia without obstruction or gangrene (principal); K21.9 Gastro-esophageal reflux disease without esophagitis; D50.9 Iron deficiency anemia, unspecified

== ENCOUNTER → 2020-03-26 | Outpatient (REF) | payer OTHER ==
[~2020-03-26] MED LIST changes: -E-Z-GAS II EFFERVESCENT PACKET (SODIUM BICARB./CITRIC ACID/SIMETHICONE) As Ordered ONE; -E-Z-HD 98% w/w 340GM SUSP BTL As Ordered ONE; -E-Z-PAQUE 96% w/w SUSP 176GM BTL As Ordered ONE
[2020-03-26 13:24] LABS: BASO # 0.1 10^3/uL (0.0-0.2); BASO % 0.8 % (0.0-1.0); EOS # 0.1 10^3/uL (0.0-0.5); EOS % 1.9 % (0.0-3.0); HEMATOCRIT 41.7 % (42.0-52.0); HEMOGLOBIN 13.5 g/dl (13.5-17.5); LYMPH # 1.3 10^3/uL (1.5-5.0); LYMPH % 17.3 % (24.0-44.0); MEAN CORPUSCULAR HEMOGLOBIN 28.8 pg (27.0-33.0); MEAN CORPUSCULAR HGB CONC 32.4 g/dl (32.0-36.5); MEAN CORPUSCULAR VOLUME 89.1 fl (80.0-96.0); MONO % 13.2 % (0.0-5.0); NEUTROPHILS # 4.9 10^3/uL (1.5-8.5); NEUTROPHILS % 66.4 % (36.0-66.0); PLATELET COUNT, AUTOMATED 221 10^3/uL (150-450); RED BLOOD COUNT 4.68 10^6/uL (4.30-6.10); WHITE BLOOD COUNT 7.4 10^3/uL (4.0-10.0)
[2020-03-26 13:57] LABS: ALBUMIN 3.8 GM/DL (3.2-5.2); ALT/SGPT 59 U/L (12-78); BILIRUBIN,TOTAL 0.8 MG/DL (0.2-1.0); BLOOD UREA NITROGEN 12 MG/DL (7-18); CALCIUM LEVEL 9.3 MG/DL (8.8-10.2); CARBON DIOXIDE LEVEL 25 MEQ/L (21-32); CHLORIDE LEVEL 110 MEQ/L (98-107); CHOLESTEROL LEVEL 134 MG/DL (<200); CHOLESTEROL RISK RATIO 2.627 (<5); CREATININE FOR GFR 1.12 MG/DL (0.70-1.30); FREE T4 1.37 NG/DL (0.76-1.46); GLOMERULAR FILTRATION RATE > 60.0 (>49); GLUCOSE, FASTING 117 MG/DL (70-100); HDL CHOLESTEROL 51 MG/DL (>40); LDL CHOLESTEROL 56 MG/DL (<100); MAGNESIUM LEVEL 1.9 MG/DL (1.8-2.4); NON-HDL-C 83 MG/DL; POTASSIUM SERUM 3.9 MEQ/L (3.5-5.1); SODIUM LEVEL 141 MEQ/L (136-145); THYROID STIMULATING HORMONE 0.704 uIU/ML (0.358-3.740); TOTAL 25(OH) VITAMIN D 22.8 NG/ML (30.0-100.0); TOTAL PROTEIN 7.2 GM/DL (6.4-8.2); TRIGLYCERIDES LEVEL 133 MG/DL (<150)
[2020-03-26 17:00] LABS: HEMOGLOBIN A1c 5.5 %
== END ==
LOC: M LAB REF 12:18
PROVIDERS: ATTEND Nurse Practitioner Family
DX: M25.552 Pain in left hip (principal); Z13.9 Encounter for screening, unspecified; E83.42 Hypomagnesemia; E55.9 Vitamin D deficiency, unspecified; E11.9 Type 2 diabetes mellitus without complications; M19.90 Unspecified osteoarthritis, unspecified site; I10 Essential (primary) hypertension

== ENCOUNTER 2020-05-22 13:54 | Outpatient (RCR) | payer OTHER | END 2020-06-07 | disposition home or self-care (01) | LOC: M ST 13:54 | PROVIDERS: ATTEND Otolaryngology | DX: Z90.02 Acquired absence of larynx (principal) ==

== ENCOUNTER → 2020-06-26 | Outpatient (REF) | payer OTHER ==
[2020-06-26 14:25] LABS: BASO # 0.1 10^3/uL (0.0-0.2); EOS # 0.1 10^3/uL (0.0-0.5); EOS % 1.6 % (0.0-3.0); HEMATOCRIT 41.2 % (42.0-52.0); HEMOGLOBIN 13.7 g/dl (13.5-17.5); LYMPH % 28.6 % (24.0-44.0); MEAN CORPUSCULAR HEMOGLOBIN 31.6 pg (27.0-33.0); MEAN CORPUSCULAR HGB CONC 33.3 g/dl (32.0-36.5); MEAN CORPUSCULAR VOLUME 95.2 fl (80.0-96.0); MONO # 0.8 10^3/uL (0.0-0.8); MONO % 11.9 % (0.0-5.0); NEUTROPHILS # 3.9 10^3/uL (1.5-8.5); NEUTROPHILS % 56.3 % (36.0-66.0); PLATELET COUNT, AUTOMATED 214 10^3/uL (150-450); RED BLOOD COUNT 4.33 10^6/uL (4.30-6.10)
[2020-06-26 15:00] LABS: ALBUMIN 3.8 GM/DL (3.2-5.2); ALT/SGPT 70 U/L (12-78); BILIRUBIN,TOTAL 0.5 MG/DL (0.2-1.0); BLOOD UREA NITROGEN 20 MG/DL (7-18); CALCIUM LEVEL 9.3 MG/DL (8.8-10.2); CARBON DIOXIDE LEVEL 28 MEQ/L (21-32); CHLORIDE LEVEL 107 MEQ/L (98-107); CHOLESTEROL LEVEL 125 MG/DL (<200); CHOLESTEROL RISK RATIO 2.906 (<5); CREATININE FOR GFR 1.15 MG/DL (0.70-1.30); FREE T4 1.73 NG/DL (0.76-1.46); GLOMERULAR FILTRATION RATE > 60.0 (>49); GLUCOSE, FASTING 94 MG/DL (70-100); HDL CHOLESTEROL 43 MG/DL (>40); LDL CHOLESTEROL 57 MG/DL (<100); NON-HDL-C 82 MG/DL; POTASSIUM SERUM 4.6 MEQ/L (3.5-5.1); SODIUM LEVEL 139 MEQ/L (136-145); THYROID STIMULATING HORMONE 0.024 uIU/ML (0.358-3.740); TOTAL 25(OH) VITAMIN D 30.9 NG/ML (30.0-100.0); TOTAL PROTEIN 7.1 GM/DL (6.4-8.2); TRIGLYCERIDES LEVEL 124 MG/DL (<150)
[2020-06-26 16:35] LABS: APPEARANCE, URINE MANUAL CLEAR (CLEAR); COLOR, URINE MANUAL LT YELLOW (YELLOW)
[2020-06-26 16:36] LABS: BILIRUBIN, URINE MANUAL NEGATIVE (NEGATIVE); BLOOD URINE MANUAL TRACE (NEGATIVE); GLUCOSE, URINE (UA) MANUAL NEGATIVE (NEGATIVE); KETONE, URINE MANUAL NEGATIVE (NEGATIVE); LEUKOCYTE ESTERASE, URINE MAN NEGATIVE (NEGATIVE); NITRITE, URINE MANUAL NEGATIVE (NEGATIVE); PROTEIN, URINE MANUAL NEGATIVE (NEGATIVE); UROBILINOGEN, URINE MANUAL NORMAL (NORMAL)
[2020-06-26 18:12] LABS: BACTERIA, URINE NONE SEEN; HYALINE CAST, URINE NONE SEEN /lpf (0-1); MUCUS, URINE MOD AMOUNT (NEGATIVE); SQUAMOUS EPITHELIAL CELL URINE MOD AMOUNT /hpf (SMALL AMT)
== END ==
LOC: M LAB REF 11:51
PROVIDERS: ATTEND Nurse Practitioner Family
DX: E03.9 Hypothyroidism, unspecified (principal); R12 Heartburn; Z13.9 Encounter for screening, unspecified; E55.9 Vitamin D deficiency, unspecified; E11.9 Type 2 diabetes mellitus without complications; K21.9 Gastro-esophageal reflux disease without esophagitis

== ENCOUNTER → 2020-07-25 | Outpatient (CLI) | payer OTHER ==
--- NOTE | 2020-08-09 08:46 | REP ---
CHEST CT WITHOUT CONTRAST CLINICAL: Follow-up abnormal lung findings. COMPARISON: 01/29/2020. TECHNIQUE: Axial noncontrast images from the thoracic inlet to the upper abdomen with coronal and sagittal reformations. FINDINGS: Evidence for prior laryngectomy with a given history of laryngeal carcinoma again noted. The tracheobronchial tree is patent and normal. The mediastinum demonstrates atherosclerotic changes to the thoracic aorta and coronary arteries essentially unchanged and without aortic aneurysm or cardiomegaly. No pericardial effusion. No axillary, hilar, or mediastinal adenopathy is appreciated. The bilateral lung reese demonstrate stable chronic postsurgical changes involving the right hemithorax. No consolidation, significant nodule, or mass lesion. No effusion. No pneumothorax. Limited upper abdomen demonstrates diffuse fatty infiltration to the liver along with normal bilateral adrenal glands. Surrounding musculoskeletal structures are intact and without acute osseous abnormality. IMPRESSION: * Laryngectomy. * Stable postsurgical changes involving the right hemithorax. * No acute mediastinal or pleural parenchymal process appreciated. MTDD
== END ==
LOC: M RAD 08:49
PROVIDERS: ATTEND Internal Medicine Hematology & Oncology
DX: C34.11 Malignant neoplasm of upper lobe, right bronchus or lung (principal); Z85.21 Personal history of malignant neoplasm of larynx; I70.0 Atherosclerosis of aorta; I25.10 Atherosclerotic heart disease of native coronary artery without angina pectoris; K76.0 Fatty (change of) liver, not elsewhere classified; Z90.02 Acquired absence of larynx

== ENCOUNTER → 2020-08-15 | Outpatient (REF) | payer OTHER ==
[2020-08-15 13:22] LABS: FREE T4 1.68 NG/DL (0.76-1.46); THYROID STIMULATING HORMONE 0.024 uIU/ML (0.358-3.740)
[2020-08-16 19:07] LABS: TESTOSTERONE FREE (DIRECT) 2.7 pg/mL (6.6-18.1)
== END ==
LOC: M LAB REF 12:16
PROVIDERS: ATTEND Nurse Practitioner Family
DX: N52.9 Male erectile dysfunction, unspecified (principal)

== ENCOUNTER → 2020-09-12 | Outpatient (REF) | payer OTHER | LOC: M LAB REF 15:56 | PROVIDERS: ATTEND Surgery | DX: D48.5 Neoplasm of uncertain behavior of skin (principal) ==

== ENCOUNTER 2020-09-20 10:55 | Outpatient (RCR) | payer OTHER ==
[~2020-09-20 10:55] MED LIST changes: -MONT10TA4 PO; +MONT5TAB2 PO
== END 2020-10-07 ==
LOC: M ST 10:55
PROVIDERS: ATTEND Otolaryngology
DX: Z90.02 Acquired absence of larynx (principal)

== ENCOUNTER → 2020-10-17 | Outpatient (REF) | payer OTHER ==
[2020-10-17 17:51] LABS: BASO # 0.1 10^3/uL (0.0-0.2); EOS # 0.1 10^3/uL (0.0-0.5); EOS % 1.4 % (0.0-3.0); HEMATOCRIT 46.9 % (42.0-52.0); HEMOGLOBIN 15.4 g/dl (13.5-17.5); LYMPH # 1.9 10^3/uL (1.5-5.0); LYMPH % 22.7 % (24.0-44.0); MEAN CORPUSCULAR HGB CONC 32.8 g/dl (32.0-36.5); MEAN CORPUSCULAR VOLUME 94.6 fl (80.0-96.0); MONO % 11.8 % (0.0-5.0); NEUTROPHILS # 5.2 10^3/uL (1.5-8.5); NEUTROPHILS % 62.4 % (36.0-66.0); PLATELET COUNT, AUTOMATED 257 10^3/uL (150-450); RED BLOOD COUNT 4.96 10^6/uL (4.30-6.10); WHITE BLOOD COUNT 8.3 10^3/uL (4.0-10.0)
[2020-10-17 18:05] LABS: HEMOGLOBIN A1c 5.7 %
[2020-10-17 18:44] LABS: ALBUMIN 4.2 GM/DL (3.2-5.2); BILIRUBIN,TOTAL 0.7 MG/DL (0.2-1.0); CALCIUM LEVEL 10.4 MG/DL (8.8-10.2); CHOLESTEROL RISK RATIO 2.888 (<5); CREATININE FOR GFR 1.35 MG/DL (0.70-1.30); FREE T4 1.26 NG/DL (0.76-1.46); GLOMERULAR FILTRATION RATE 57.2 (>49); POTASSIUM SERUM 4.8 MEQ/L (3.5-5.1); THYROID STIMULATING HORMONE 0.501 uIU/ML (0.358-3.740); TOTAL 25(OH) VITAMIN D 19.3 NG/ML (30.0-100.0); TOTAL PROTEIN 7.9 GM/DL (6.4-8.2)
[2020-10-19 11:09] LABS: TESTOSTERONE FREE (DIRECT) 4.5 pg/mL (6.6-18.1)
== END ==
LOC: M LAB REF 16:22
PROVIDERS: ATTEND Nurse Practitioner Family
DX: E03.9 Hypothyroidism, unspecified (principal); Z13.9 Encounter for screening, unspecified; E55.9 Vitamin D deficiency, unspecified; E11.9 Type 2 diabetes mellitus without complications; N52.9 Male erectile dysfunction, unspecified; E66.3 Overweight; I10 Essential (primary) hypertension; E78.5 Hyperlipidemia, unspecified; K21.9 Gastro-esophageal reflux disease without esophagitis

== ENCOUNTER → 2021-02-06 | Outpatient (REF) | payer OTHER ==
[~2021-02-06] MED LIST changes: +MONT10TA10 PO; -MONT5TAB2 PO
[2021-02-06 11:49] LABS: BASO # 0.1 10^3/uL (0.0-0.2); BASO % 1.2 % (0.0-1.0); EOS # 0.1 10^3/uL (0.0-0.5); EOS % 1.4 % (0.0-3.0); HEMATOCRIT 44.7 % (42.0-52.0); HEMOGLOBIN 14.9 g/dl (13.5-17.5); LYMPH % 22.9 % (24.0-44.0); MEAN CORPUSCULAR HEMOGLOBIN 31.9 pg (27.0-33.0); MEAN CORPUSCULAR HGB CONC 33.3 g/dl (32.0-36.5); MEAN CORPUSCULAR VOLUME 95.7 fl (80.0-96.0); MONO % 11.7 % (2.0-8.0); NEUTROPHILS # 5.3 10^3/uL (1.5-8.5); NEUTROPHILS % 62.2 % (36.0-66.0); PLATELET COUNT, AUTOMATED 233 10^3/uL (150-450); RED BLOOD COUNT 4.67 10^6/uL (4.30-6.10); WHITE BLOOD COUNT 8.5 10^3/uL (4.0-10.0)
[2021-02-06 13:01] LABS: HEMOGLOBIN A1c 5.6 %
[2021-02-06 13:54] LABS: ALT/SGPT 96 U/L (12-78); BILIRUBIN,TOTAL 0.7 MG/DL (0.2-1.0); BLOOD UREA NITROGEN 16 MG/DL (7-18); CALCIUM LEVEL 9.4 MG/DL (8.8-10.2); CARBON DIOXIDE LEVEL 27 MEQ/L (21-32); CHLORIDE LEVEL 108 MEQ/L (98-107); CHOLESTEROL LEVEL 136 MG/DL (<200); CHOLESTEROL RISK RATIO 2.775 (<5); CREATININE FOR GFR 1.17 MG/DL (0.70-1.30); FREE T4 1.31 NG/DL (0.76-1.46); GLOMERULAR FILTRATION RATE > 60.0 (>49); GLUCOSE, FASTING 99 MG/DL (70-100); HDL CHOLESTEROL 49 MG/DL (>40); LDL CHOLESTEROL 60 MG/DL (<100); NON-HDL-C 87 MG/DL; POTASSIUM SERUM 4.1 MEQ/L (3.5-5.1); SODIUM LEVEL 141 MEQ/L (136-145); THYROID STIMULATING HORMONE 0.748 uIU/ML (0.358-3.740); TOTAL 25(OH) VITAMIN D 71.1 NG/ML (30.0-100.0); TOTAL PROTEIN 7.4 GM/DL (6.4-8.2); TRIGLYCERIDES LEVEL 134 MG/DL (<150)
== END ==
LOC: M LAB REF 11:08
PROVIDERS: ATTEND Nurse Practitioner Family
DX: E78.5 Hyperlipidemia, unspecified (principal); J44.9 Chronic obstructive pulmonary disease, unspecified; E03.9 Hypothyroidism, unspecified; I10 Essential (primary) hypertension

== ENCOUNTER → 2021-02-13 | Outpatient (REF) | payer OTHER ==
[2021-02-13 17:24] LABS: ALBUMIN 3.8 GM/DL (3.2-5.2); ALT/SGPT 84 U/L (12-78); BILIRUBIN,TOTAL 0.6 MG/DL (0.2-1.0); BLOOD UREA NITROGEN 18 MG/DL (7-18); CALCIUM LEVEL 9.8 MG/DL (8.8-10.2); CARBON DIOXIDE LEVEL 25 MEQ/L (21-32); CHLORIDE LEVEL 111 MEQ/L (98-107); CREATININE FOR GFR 1.13 MG/DL (0.70-1.30); GLOMERULAR FILTRATION RATE > 60.0 (>49); GLUCOSE, FASTING 95 MG/DL (70-100); POTASSIUM SERUM 4.1 MEQ/L (3.5-5.1); SODIUM LEVEL 143 MEQ/L (136-145); TOTAL PROTEIN 6.9 GM/DL (6.4-8.2)
== END ==
LOC: M LAB REF 16:07
PROVIDERS: ATTEND Nurse Practitioner Family
DX: R74.01 Elevation of levels of liver transaminase levels (principal)

== ENCOUNTER → 2021-02-14 | Outpatient (CLI) | payer OTHER ==
[~2021-02-14] MED LIST changes: +GASTROGRAFIN SOLUTION 30ML (Q9963) As Ordered ONE; +ISOVUE-370 76% 100ML VIAL As Ordered ONE
--- NOTE | 2021-02-14 11:13 | REP ---
INDICATION: LUNG CA, HEAD NECK CA. COMPARISON: 07/25/2020 TECHNIQUE: Chest CT with IV contrast. FINDINGS: Patient has a history of carcinoma of the larynx and laryngectomy in November of 2017 as well as carcinoma of the lung with left upper lobectomy in January of 2018. There is a tracheostomy. This is unchanged. There is a left upper lobectomy. This is unchanged. There are no lung nodules or masses. There are no infiltrates or pleural effusions. There is no mediastinal or hilar lymph node enlargement. There is no axillary lymphadenopathy. The thoracic aorta is unremarkable. Cardiac size is normal. There is no pericardial effusion. There are no lytic, blastic or destructive skeletal changes. There is a small fixed hiatal hernia, unchanged. IMPRESSION: No change from the prior study. No evidence of metastatic or recurrent disease. Postsurgical changes as described. Small hiatal hernia. <Electronically signed by Macho Fernandez > 02/14/21 [id number]
--- NOTE | 2021-02-14 11:20 | REP ---
INDICATION: LUNG CA, HEAD NECK CA. COMPARISON: Abdomen/pelvis CT dated 06/26/2015. TECHNIQUE: Abdomen/pelvis CT with IV and bowel contrast including immediate and delayed scanning after IV contrast. FINDINGS: Patient has a history of laryngeal carcinoma and laryngectomy as well as lung carcinoma and right upper lobectomy. The hepatic parenchyma is diffusely less dense than the spleen suggestive of hepato steatosis. There are no hepatic nodules or masses. The gallbladder, pancreas and spleen are normal size and unremarkable. There is a small hiatal hernia. This was not present previously. The adrenals and kidneys are unremarkable. The abdominal aorta is unremarkable. There is no periaortic adenopathy or mass. The bowel and mesentery are unremarkable. There is no ascites. Pelvis: The appendix is unremarkable. The bladder is unremarkable. There is no adenopathy or ascites. There are no lytic, blastic or destructive skeletal changes. There is degenerative disc disease in the lumbar spine at L3-4 and L5-S1. There is grade 1 anterolisthesis of L5. IMPRESSION: Hepato steatosis. Small hiatal hernia. Degenerative disc disease in the lumbar spine and grade 1 anterolisthesis of L5. No adenopathy, ascites or metastatic disease. <Electronically signed by Macho Fernandez > 02/14/21 [id number]
== END ==
LOC: M RAD 08:40
PROVIDERS: ATTEND Internal Medicine Hematology & Oncology
DX: C34.90 Malignant neoplasm of unspecified part of unspecified bronchus or lung (principal)
CPT/HCPCS: 71260; 74177; Q9963; Q9967

== ENCOUNTER 2021-03-05 20:53 | Outpatient (RCR) | payer OTHER ==
[~2021-03-05 20:53] MED LIST changes: -GASTROGRAFIN SOLUTION 30ML (Q9963) As Ordered ONE; -ISOVUE-370 76% 100ML VIAL As Ordered ONE
== END 2021-03-07 ==
LOC: M ST 20:53
PROVIDERS: ATTEND Otolaryngology
DX: Z90.02 Acquired absence of larynx (principal); Z96.3 Presence of artificial larynx

== ENCOUNTER 2021-05-06 11:34 | Outpatient (RCR) | payer OTHER ==
[~2021-05-06 11:34] MED LIST changes: +ALBU8.5H
== END 2021-05-07 ==
LOC: M ST 11:34
PROVIDERS: ATTEND Otolaryngology
DX: Z90.02 Acquired absence of larynx (principal); Z96.3 Presence of artificial larynx

== ENCOUNTER → 2021-05-08 | Outpatient (REF) | payer OTHER ==
[2021-05-08 17:54] LABS: BASO # 0.1 10^3/uL (0.0-0.2); EOS # 0.1 10^3/uL (0.0-0.5); EOS % 1.4 % (0.0-3.0); HEMATOCRIT 43.6 % (42.0-52.0); HEMOGLOBIN 14.4 g/dl (13.5-17.5); LYMPH # 1.9 10^3/uL (1.5-5.0); LYMPH % 20.8 % (24.0-44.0); MEAN CORPUSCULAR HEMOGLOBIN 30.9 pg (27.0-33.0); MEAN CORPUSCULAR VOLUME 93.6 fl (80.0-96.0); MONO % 10.7 % (2.0-8.0); NEUTROPHILS # 6.1 10^3/uL (1.5-8.5); NEUTROPHILS % 65.8 % (36.0-66.0); PLATELET COUNT, AUTOMATED 254 10^3/uL (150-450); RED BLOOD COUNT 4.66 10^6/uL (4.30-6.10); WHITE BLOOD COUNT 9.3 10^3/uL (4.0-10.0)
[2021-05-08 18:11] LABS: HEMOGLOBIN A1c 5.7 %
[2021-05-08 18:22] LABS: ALBUMIN 3.7 GM/DL (3.2-5.2); ALT/SGPT 64 U/L (12-78); BILIRUBIN,TOTAL 0.8 MG/DL (0.2-1.0); BLOOD UREA NITROGEN 23 MG/DL (7-18); CALCIUM LEVEL 9.7 MG/DL (8.8-10.2); CARBON DIOXIDE LEVEL 24 MEQ/L (21-32); CHLORIDE LEVEL 108 MEQ/L (98-107); CHOLESTEROL LEVEL 126 MG/DL (<200); CHOLESTEROL RISK RATIO 2.377 (<5); CREATININE FOR GFR 1.07 MG/DL (0.70-1.30); FREE T4 1.87 NG/DL (0.76-1.46); GLOMERULAR FILTRATION RATE > 60.0 (>49); GLUCOSE, FASTING 105 MG/DL (70-100); HDL CHOLESTEROL 53 MG/DL (>40); LDL CHOLESTEROL 53 MG/DL (<100); NON-HDL-C 73 MG/DL; POTASSIUM SERUM 4.6 MEQ/L (3.5-5.1); SODIUM LEVEL 141 MEQ/L (136-145); THYROID STIMULATING HORMONE 0.016 uIU/ML (0.358-3.740); TOTAL PROTEIN 7.3 GM/DL (6.4-8.2); TRIGLYCERIDES LEVEL 98 MG/DL (<150)
[2021-05-08 18:23] LABS: TOTAL 25(OH) VITAMIN D 54.8 NG/ML (30.0-100.0)
== END ==
LOC: M LAB REF 16:56
PROVIDERS: ATTEND Nurse Practitioner Family
DX: I10 Essential (primary) hypertension (principal); E03.9 Hypothyroidism, unspecified; E11.8 Type 2 diabetes mellitus with unspecified complications; E66.9 Obesity, unspecified

== ENCOUNTER → 2021-05-16 | Outpatient (REF) | payer OTHER | LOC: M LAB REF 17:34 | PROVIDERS: ATTEND Physician Assistant | DX: D04.62 Carcinoma in situ of skin of left upper limb, including shoulder (principal) ==

== ENCOUNTER 2021-05-27 11:07 | Outpatient (RCR) | payer OTHER ==
[~2021-05-27 11:07] MED LIST changes: -LISI2.5T2 PO; +LISI2.5T9 PO; -MONT10TA10 PO; +MONT10TA97 PO; +OMEP-173 PO; -OMEP-218 PO
== END 2021-06-07 ==
LOC: M ST 11:07
PROVIDERS: ATTEND Otolaryngology
DX: Z96.3 Presence of artificial larynx (principal)

== ENCOUNTER 2021-08-04 10:38 | Outpatient (RCR) | payer OTHER ==
[~2021-08-04 10:38] MED LIST changes: +MONT10TA10 PO; -MONT10TA97 PO; -OMEP-173 PO; +OMEP-218 PO
== END 2021-08-07 ==
LOC: M ST 10:38
PROVIDERS: ATTEND Otolaryngology
DX: Z96.3 Presence of artificial larynx (principal)

== ENCOUNTER 2021-08-14 10:13 | Outpatient (RCR) | payer OTHER | END 2021-09-07 | LOC: M ST 10:13 | PROVIDERS: ATTEND Otolaryngology | DX: Z90.02 Acquired absence of larynx (principal); Z96.3 Presence of artificial larynx ==

== ENCOUNTER → 2021-10-29 | Outpatient (CLI) | payer OTHER ==
[~2021-10-29] MED LIST changes: +GASTROGRAFIN SOLUTION 30ML (Q9963) As Ordered ONE; +ISOVUE-370 76% 100ML VIAL As Ordered ONE
--- NOTE | 2021-10-29 16:22 | REP ---
INDICATION: HEAD/NECK/LUNG CA COMPARISON: 07/25/2020, 07/27/2019 TECHNIQUE: Axial contrast enhanced images from the thoracic inlet to the upper abdomen with coronal and sagittal reformations using 100 ml Isovue 370 intravenous contrast material. This CT examination was performed using the following dose reduction techniques: Automated exposure control, adjustment of mA and/or kv according to the patient's size, and use of iterative reconstruction technique. FINDINGS: Lung reese demonstrate chronic interstitial and postsurgical changes. There are new areas of somewhat ill-defined linear opacities bilaterally specifically left upper lobe, medial lingula, and bilateral bases which represent new findings as compared with 07/25/2020. Morphology for these findings suggest chronic change and or resolving inflammatory process. No focal consolidation, new suspicious nodule or mass lesion is appreciated. No effusion. No pneumothorax. Tracheobronchial tree is patent. There is no evidence for adenopathy. Mediastinum demonstrates stable atherosclerotic changes to the thoracic aorta and coronary arteries without aortic aneurysm or dissection. No cardiomegaly or pericardial effusion. A small hiatal hernia at the gastroesophageal junction is unchanged. Musculoskeletal structures demonstrate age-related changes without acute osseous abnormality. Limited upper abdomen demonstrates normal bilateral adrenal glands and hepatosteatosis. IMPRESSION: New scattered areas of somewhat ill-defined linear opacities bilaterally likely represent progressive chronic changes and or sequelae of prior inflammatory process. Given the patient's history of neoplasm, follow-up examination at 6 months may be warranted to confirm changes. <Electronically signed by Jaime Concepcion > 10/29/21 1620
--- NOTE | 2021-10-29 16:25 | REP ---
INDICATION: HEAD/NECK/LUNG CA. COMPARISON: 02/14/2021 TECHNIQUE: Axial contrast-enhanced images from the lung bases to the pubic symphysis using oral and 100 cc Isovue 370 intravenous contrast material. Coronal and sagittal reformations obtained along with delayed images of the abdomen. This CT examination was performed using the following dose reduction techniques: Automated exposure control, adjustment of mA and/or kv according to the patient's size, and the use of iterative reconstruction technique. FINDINGS: Liver demonstrates diffuse fatty infiltration without focal hepatic lesion. Spleen, pancreas, gallbladder, bilateral adrenal glands and kidneys are normal. The enteric system demonstrates stable small hiatal hernia. There is no evidence for bowel obstruction or acute inflammatory process. Pelvis demonstrates normal bladder and age-appropriate prostate/seminal vesicles. No ascites. No free air. No intraperitoneal or retroperitoneal adenopathy. Abdominal aorta and vasculature appear normal. Musculoskeletal structures again demonstrate chronic degenerative changes primarily L5-S1 including anterolisthesis, facet arthropathy and disc space narrowing. IMPRESSION: No acute abdominopelvic pathology appreciated. Hepatosteatosis. Stable hiatal hernia. No evidence for metastatic disease. <Electronically signed by Jaime Concepcion > 10/29/21 [id number]
== END ==
LOC: M RAD 14:03
PROVIDERS: ATTEND Internal Medicine Hematology & Oncology
DX: C32.9 Malignant neoplasm of larynx, unspecified (principal); C34.11 Malignant neoplasm of upper lobe, right bronchus or lung; K76.0 Fatty (change of) liver, not elsewhere classified
CPT/HCPCS: 71260; 74177; Q9963; Q9967

== ENCOUNTER 2022-04-13 13:25 | Outpatient (RCR) | payer OTHER ==
[~2022-04-13 13:25] MED LIST changes: -GASTROGRAFIN SOLUTION 30ML (Q9963) As Ordered ONE; -ISOVUE-370 76% 100ML VIAL As Ordered ONE; -MONT10TA10 PO; +MONT10TA97 PO; +OMEP-173 PO; -OMEP-218 PO
== END 2022-05-07 ==
LOC: M ST 13:25
PROVIDERS: ATTEND Otolaryngology
DX: Z90.02 Acquired absence of larynx (principal); Z96.3 Presence of artificial larynx

== ENCOUNTER → 2022-04-15 | Outpatient (REF) | payer OTHER | LOC: M SFHCDERM 09:28 | PROVIDERS: ATTEND Physician Assistant | DX: D04.39 Carcinoma in situ of skin of other parts of face (principal) ==

== ENCOUNTER → 2022-05-07 | Outpatient (CLI) | payer OTHER ==
[~2022-05-07] MED LIST changes: +ISOVUE-370 76% 100ML VIAL As Ordered ONE
== END ==
LOC: M RAD 09:37
PROVIDERS: ATTEND Internal Medicine Medical Oncology
DX: C34.90 Malignant neoplasm of unspecified part of unspecified bronchus or lung (principal)
CPT/HCPCS: 71260; Q9967

== ENCOUNTER 2022-06-22 09:45 | Outpatient (RCR) | payer OTHER ==
[~2022-06-22 09:45] MED LIST changes: -ISOVUE-370 76% 100ML VIAL As Ordered ONE
== END 2022-07-08 ==
LOC: M ST 09:45
PROVIDERS: ATTEND Otolaryngology
DX: Z90.02 Acquired absence of larynx (principal); Z96.3 Presence of artificial larynx

== ENCOUNTER 2022-10-26 07:54 | Outpatient (RCR) | payer OTHER | END 2022-11-07 | LOC: M ST 07:54 | PROVIDERS: ATTEND Otolaryngology | DX: Z90.02 Acquired absence of larynx (principal); Z96.3 Presence of artificial larynx ==

== ENCOUNTER → 2022-11-11 | Outpatient (REF) | payer OTHER ==
[2022-11-11 17:33] LABS: BASO # 0.1 10^3/uL (0.0-0.2); BASO % 1.1 % (0.0-1.0); EOS # 0.1 10^3/uL (0.0-0.5); EOS % 0.7 % (0.0-3.0); HEMATOCRIT 42.6 % (42.0-52.0); HEMOGLOBIN 13.9 g/dl (13.5-17.5); LYMPH # 1.5 10^3/uL (1.5-5.0); MEAN CORPUSCULAR HEMOGLOBIN 30.9 pg (27.0-33.0); MEAN CORPUSCULAR HGB CONC 32.6 g/dl (32.0-36.5); MEAN CORPUSCULAR VOLUME 94.7 fl (80.0-96.0); MONO # 0.9 10^3/uL (0.0-0.8); MONO % 11.1 % (2.0-8.0); NEUTROPHILS # 5.6 10^3/uL (1.5-8.5); NEUTROPHILS % 68.6 % (36.0-66.0); PLATELET COUNT, AUTOMATED 225 10^3/uL (150-450); WHITE BLOOD COUNT 8.2 10^3/uL (4.0-10.0)
[2022-11-11 17:56] LABS: ALBUMIN 3.8 G/DL (3.2-5.2); ALKALINE PHOSPHATASE 68 U/L (46-116); ALT/SGPT 67 U/L (7.0-40); AST/SGOT 66 U/L (<34); BILIRUBIN,TOTAL 0.4 MG/DL (0.3-1.2); BLOOD UREA NITROGEN 17 MG/DL (9-23); CALCIUM LEVEL 10.1 MG/DL (8.3-10.6); CARBON DIOXIDE LEVEL 21 MMOL/L (20-31); CHLORIDE LEVEL 108 MMOL/L (98-107); CHOLESTEROL LEVEL 117 MG/DL (<200); CREATININE FOR GFR 1.04 MG/DL (0.70-1.30); GLOMERULAR FILTRATION RATE > 60.0 (>49); GLUCOSE, FASTING 99 MG/DL (74-106); HDL CHOLESTEROL 41.7 MG/DL (>40); LDL CHOLESTEROL 44.7 MG/DL (<100); NON-HDL-C 75 MG/DL; POTASSIUM SERUM 4.1 MMOL/L (3.5-5.1); SODIUM LEVEL 145 MMOL/L (136-145); THYROID STIMULATING HORMONE 4.699 uIU/ML (0.55-4.78); TOTAL 25(OH) VITAMIN D 42.1 NG/ML (20.0-100.0); TOTAL PROTEIN 7.1 G/DL (5.7-8.2); TRIGLYCERIDES LEVEL 153 MG/DL (<150)
[2022-11-11 22:27] LABS: HEMOGLOBIN A1c 5.7 % (4.0-6.0)
== END ==
LOC: M LAB REF 16:27
PROVIDERS: ATTEND Nurse Practitioner Family
DX: E66.9 Obesity, unspecified (principal)

== ENCOUNTER → 2022-11-25 | Outpatient (CLI) | payer OTHER | LOC: M RAD 14:59 | PROVIDERS: ATTEND Nurse Practitioner Family | DX: M16.12 Unilateral primary osteoarthritis, left hip (principal); M25.552 Pain in left hip ==

== ENCOUNTER → 2022-12-02 | Outpatient (CLI) | payer OTHER ==
[~2022-12-02] MED LIST changes: +GASTROGRAFIN SOLUTION 30ML As Ordered ONE; +ISOVUE-370 76% 100ML VIAL As Ordered ONE
== END ==
LOC: M RAD 13:22
PROVIDERS: ATTEND Nurse Practitioner
DX: D50.9 Iron deficiency anemia, unspecified (principal); K76.0 Fatty (change of) liver, not elsewhere classified; I70.0 Atherosclerosis of aorta; I25.84 Coronary atherosclerosis due to calcified coronary lesion; Z90.2 Acquired absence of lung [part of]

== ENCOUNTER 2022-12-03 08:52 | Outpatient (RCR) | payer OTHER ==
[~2022-12-03 08:52] MED LIST changes: -GASTROGRAFIN SOLUTION 30ML As Ordered ONE; -ISOVUE-370 76% 100ML VIAL As Ordered ONE
== END 2022-12-08 ==
LOC: M ST 08:52
PROVIDERS: ATTEND Otolaryngology
DX: Z90.02 Acquired absence of larynx (principal); Z96.3 Presence of artificial larynx

== ENCOUNTER 2023-01-18 15:47 | Emergency (ER) | payer OTHER ==
[~2023-01-18] VITALS: Ht 152.4 cm; Wt 66.0 kg
[2023-01-18 15:48] VITALS: BP 132/78
[2023-01-18] MEDS ORDERED: traMADol 50 MG TAB PO ONE (16:40)
[2023-01-18 17:19] LABS: HEMATOCRIT 42.3 % (42.0-52.0); HEMOGLOBIN 14.1 g/dl (13.5-17.5); MEAN CORPUSCULAR HEMOGLOBIN 31.8 pg (27.0-33.0); MEAN CORPUSCULAR HGB CONC 33.3 g/dl (32.0-36.5); MEAN CORPUSCULAR VOLUME 95.5 fl (80.0-96.0); PLATELET COUNT, AUTOMATED 310 10^3/uL (150-450); RED BLOOD COUNT 4.43 10^6/uL (4.30-6.10); WHITE BLOOD COUNT 10.7 10^3/uL (4.0-10.0)
[2023-01-18 18:04] LABS: ERYTHROCYTE SEDIMENTATION RATE 21 mm/hr (0-20)
[2023-01-18] MEDS ORDERED: CELE1CAP4 PO (18:17)
== END 2023-01-18 18:32 | disposition home or self-care (01) ==
LOC: M ED 15:47
DX: M16.12 Unilateral primary osteoarthritis, left hip (principal); E11.9 Type 2 diabetes mellitus without complications; K21.9 Gastro-esophageal reflux disease without esophagitis; I10 Essential (primary) hypertension; J44.9 Chronic obstructive pulmonary disease, unspecified; C22.9 Malignant neoplasm of liver, not specified as primary or secondary; C32.9 Malignant neoplasm of larynx, unspecified; Z87.891 Personal history of nicotine dependence; Z88.8 Allergy status to other drugs, medicaments and biological substances; Z79.02 Long term (current) use of antithrombotics/antiplatelets; Z79.811 Long term (current) use of aromatase inhibitors; Z79.4 Long term (current) use of insulin; Z79.899 Other long term (current) drug therapy

== ENCOUNTER 2023-02-10 10:11 | Day surgery (SDC) | payer OTHER ==
[~2023-02-10] VITALS: Ht 149.9 cm; Wt 66.1 kg
[~2023-02-10 10:11] MED LIST changes: +BSS IRRIG/VANCO(10MG)/TOBRA(5MG)/EPINEPH(1:1000-0.5CC)500ML BAG-ORONLY IR ONE; +CEFUROXIME 1MG/0.1ML INTRACAMERAL INJ As Ordered ONE; +CELE1CAP4 PO; +CYCLOPENTOLATE 1% OPHTH SOLN 2ML BTL OD SCH; +LIDOCAINE 1% SDV 5ML VIAL As Ordered ONE; +LIDOCAINE 3.5 % 1ML OPHTH TOPICAL GEL OU ONE; +MIDAZOLAM INJ 2MG/2ML VIAL As Ordered ONE; +OFLOXACIN 0.3 % (OCUFLOX) OPTH SOL 5ML OD ONE; +PHENYLEPHRINE 10% OPHTH SOL 5ML OD PRN; +PHENYLEPHRINE 2.5% OPHTH SOL 2ML OD SCH; +TROPICAMIDE 1% OPHTH SOLN 15ML OD SCH; +fentaNYL 100 MCG/2 ML INJECTION As Ordered ONE
[2023-02-10] MEDS ORDERED: ALBUTEROL SULFATE 2.5MG/0.5ML INH NEB SOLN INH STA (12:36)
[2023-02-10] MEDS ORDERED: MIDAZOLAM INJ 2MG/2ML VIAL As Ordered ONE (12:52)
[2023-02-10 14:30] VITALS: BP 138/79
== END 2023-02-10 17:15 | disposition home or self-care (01) ==
LOC: M SDC 10:11
PROVIDERS: ATTEND Ophthalmology
DX: H25.11 Age-related nuclear cataract, right eye (principal); I10 Essential (primary) hypertension; E78.5 Hyperlipidemia, unspecified; E11.9 Type 2 diabetes mellitus without complications; E03.9 Hypothyroidism, unspecified; J44.9 Chronic obstructive pulmonary disease, unspecified; Z92.21 Personal history of antineoplastic chemotherapy; Z92.3 Personal history of irradiation; Z80.1 Family history of malignant neoplasm of trachea, bronchus and lung; Z88.8 Allergy status to other drugs, medicaments and biological substances; Z79.899 Other long term (current) drug therapy; Z79.84 Long term (current) use of oral hypoglycemic drugs
CPT/HCPCS: 66984; J0697; J2250; J3010; V2632

== ENCOUNTER 2023-02-15 10:44 | Day surgery (SDC) | payer OTHER ==
[~2023-02-15] VITALS: Ht 149.9 cm; Wt 66.6 kg
[~2023-02-15 10:44] MED LIST changes: -CYCLOPENTOLATE 1% OPHTH SOLN 2ML BTL OD SCH; -MIDAZOLAM INJ 2MG/2ML VIAL As Ordered ONE; -OFLOXACIN 0.3 % (OCUFLOX) OPTH SOL 5ML OD ONE; +OFLOXACIN 0.3 % (OCUFLOX) OPTH SOL 5ML OS ONE; -PHENYLEPHRINE 10% OPHTH SOL 5ML OD PRN; +PHENYLEPHRINE 10% OPHTH SOL 5ML OS PRN; -PHENYLEPHRINE 2.5% OPHTH SOL 2ML OD SCH; -TROPICAMIDE 1% OPHTH SOLN 15ML OD SCH; -fentaNYL 100 MCG/2 ML INJECTION As Ordered ONE
[2023-02-15] MEDS ORDERED: fentaNYL 100 MCG/2 ML INJECTION As Ordered ONE (12:16)
[2023-02-15] MEDS ORDERED: MIDAZOLAM INJ 2MG/2ML VIAL As Ordered ONE (12:16)
[2023-02-15 13:30] VITALS: BP 134/64
[2023-02-15] MEDS: TROPICAMIDE 1% OPHTH SOLN 15ML OS SCH (13:56)
[2023-02-15] MEDS: CYCLOPENTOLATE 1% OPHTH SOLN 2ML BTL OS SCH (13:56)
[2023-02-15] MEDS: PHENYLEPHRINE 2.5% OPHTH SOL 2ML OS SCH (13:56)
== END 2023-02-15 16:51 | disposition home or self-care (01) ==
LOC: M SDC 10:44
PROVIDERS: ATTEND Ophthalmology
DX: H25.12 Age-related nuclear cataract, left eye (principal); I10 Essential (primary) hypertension; E78.5 Hyperlipidemia, unspecified; E11.9 Type 2 diabetes mellitus without complications; E03.9 Hypothyroidism, unspecified; J44.9 Chronic obstructive pulmonary disease, unspecified; Z85.118 Personal history of other malignant neoplasm of bronchus and lung; Z92.21 Personal history of antineoplastic chemotherapy; Z85.21 Personal history of malignant neoplasm of larynx; Z92.3 Personal history of irradiation; F32.A Depression, unspecified; F41.9 Anxiety disorder, unspecified; Z88.8 Allergy status to other drugs, medicaments and biological substances; Z79.899 Other long term (current) drug therapy; Z79.84 Long term (current) use of oral hypoglycemic drugs
CPT/HCPCS: 66984; J0697; J2250; J3010; V2632

== ENCOUNTER → 2023-03-11 | Outpatient (CLI) | payer OTHER ==
[~2023-03-11] MED LIST changes: -BSS IRRIG/VANCO(10MG)/TOBRA(5MG)/EPINEPH(1:1000-0.5CC)500ML BAG-ORONLY IR ONE; -CEFUROXIME 1MG/0.1ML INTRACAMERAL INJ As Ordered ONE; -LIDOCAINE 1% SDV 5ML VIAL As Ordered ONE; -LIDOCAINE 3.5 % 1ML OPHTH TOPICAL GEL OU ONE; -OFLOXACIN 0.3 % (OCUFLOX) OPTH SOL 5ML OS ONE; -PHENYLEPHRINE 10% OPHTH SOL 5ML OS PRN
== END ==
LOC: M RAD 09:19
PROVIDERS: ATTEND Internal Medicine Pulmonary Disease
DX: M25.552 Pain in left hip (principal)
CPT/HCPCS: 78306; A9503

== ENCOUNTER → 2023-03-17 | Outpatient (REF) | payer OTHER ==
[2023-03-17 13:51] LABS: HEMOGLOBIN A1c 5.8 % (4.0-6.0)
[2023-03-17 14:25] LABS: ALBUMIN 3.6 G/DL (3.2-5.2); ALKALINE PHOSPHATASE 66 U/L (46-116); ALT/SGPT 51 U/L (7.0-40); AST/SGOT 61 U/L (<34); BILIRUBIN,TOTAL 0.6 MG/DL (0.3-1.2); BLOOD UREA NITROGEN 25 MG/DL (9-23); CALCIUM LEVEL 9.4 MG/DL (8.3-10.6); CARBON DIOXIDE LEVEL 24 MMOL/L (20-31); CHLORIDE LEVEL 107 MMOL/L (98-107); CHOLESTEROL LEVEL 159 MG/DL (<200); CHOLESTEROL RISK RATIO 3.31 (<5); CREATININE FOR GFR 1.03 MG/DL (0.70-1.30); GLOMERULAR FILTRATION RATE > 60.0 (>49); GLUCOSE, FASTING 102 MG/DL (74-106); LDL CHOLESTEROL 74.6 MG/DL (<100); POTASSIUM SERUM 4.8 MMOL/L (3.5-5.1); SODIUM LEVEL 141 MMOL/L (136-145); TOTAL PROTEIN 6.7 G/DL (5.7-8.2); TRIGLYCERIDES LEVEL 182 MG/DL (<150)
== END ==
LOC: M LAB REF 12:28
PROVIDERS: ATTEND Nurse Practitioner Family
DX: Z13.228 Encounter for screening for other metabolic disorders (principal)

== ENCOUNTER → 2023-05-17 | Outpatient (CLI) | payer OTHER | LOC: M RAD 15:47 | PROVIDERS: ATTEND Internal Medicine Pulmonary Disease | DX: Z85.21 Personal history of malignant neoplasm of larynx (principal) ==

== ENCOUNTER 2023-06-25 07:51 | Outpatient (RCR) | payer OTHER | END 2023-07-08 | LOC: M ST 07:51 | PROVIDERS: ATTEND Otolaryngology | DX: Z96.3 Presence of artificial larynx (principal) ==

== ENCOUNTER → 2023-06-30 | Outpatient (REF) | payer OTHER ==
[2023-06-30 19:11] LABS: CHOLESTEROL RISK RATIO 3.14 (<5); HDL CHOLESTEROL 44.9 MG/DL (>40); LDL CHOLESTEROL 75.1 MG/DL (<100); NON-HDL-C 96.1 MG/DL
== END ==
LOC: M LAB REF 16:50
PROVIDERS: ATTEND Nurse Practitioner Family
DX: J44.9 Chronic obstructive pulmonary disease, unspecified (principal); E78.5 Hyperlipidemia, unspecified; E03.9 Hypothyroidism, unspecified

== ENCOUNTER → 2023-08-30 | Outpatient (CLI) | payer OTHER ==
[2023-08-31 02:31] LABS: CREATININE, URINE 251.7 MG/DL; MAU/CREAT RATIO 25.8 MCG/MG (0.0-30.0)
== END ==
LOC: M RAD 12:54
PROVIDERS: ATTEND Nurse Practitioner Family
DX: R06.2 Wheezing (principal); E03.9 Hypothyroidism, unspecified; E11.9 Type 2 diabetes mellitus without complications; E78.5 Hyperlipidemia, unspecified; K21.9 Gastro-esophageal reflux disease without esophagitis

== ENCOUNTER 2023-10-29 07:32 | Outpatient (RCR) | payer OTHER | END 2023-11-07 | LOC: M ST 07:32 | PROVIDERS: ATTEND Otolaryngology | DX: Z90.02 Acquired absence of larynx (principal); Z96.3 Presence of artificial larynx ==

== ENCOUNTER → 2023-11-29 | Outpatient (REF) | payer OTHER | LOC: M SFHCDERM 17:29 | PROVIDERS: ATTEND Physician Assistant | DX: L98.9 Disorder of the skin and subcutaneous tissue, unspecified (principal) ==

== ENCOUNTER → 2024-01-11 | Outpatient (REF) | payer OTHER | LOC: M LAB REF 15:40 | PROVIDERS: ATTEND Surgery | DX: D04.9 Carcinoma in situ of skin, unspecified (principal) ==

== ENCOUNTER → 2024-03-07 | Outpatient (REF) | payer OTHER | LOC: M LAB REF 11:43 | PROVIDERS: ATTEND Nurse Practitioner Family | DX: E03.9 Hypothyroidism, unspecified (principal) ==

== ENCOUNTER 2024-03-17 09:22 | Outpatient (RCR) | payer OTHER | END 2024-04-07 | LOC: M ST 09:22 | PROVIDERS: ATTEND Otolaryngology | DX: Z90.02 Acquired absence of larynx (principal); Z96.3 Presence of artificial larynx ==

== ENCOUNTER → 2024-05-31 | Outpatient (REF) | payer OTHER ==
[2024-05-31 14:14] LABS: ALBUMIN 3.6 G/DL (3.2-5.2); ALKALINE PHOSPHATASE 69 U/L (46-116); ALT/SGPT 75 U/L (7.0-40); AST/SGOT 81 U/L (<34); BILIRUBIN,TOTAL 0.6 MG/DL (0.3-1.2); BLOOD UREA NITROGEN 23 MG/DL (9-23); CALCIUM LEVEL 9.6 MG/DL (8.3-10.6); CARBON DIOXIDE LEVEL 26 MMOL/L (20-31); CHLORIDE LEVEL 110 MMOL/L (98-107); CHOLESTEROL LEVEL 135 MG/DL (<200); CHOLESTEROL RISK RATIO 3.55 (<5); CREATININE FOR GFR 1.08 MG/DL (0.70-1.30); GLOMERULAR FILTRATION RATE > 60.0 (>49); GLUCOSE, FASTING 161 MG/DL (74-106); LDL CHOLESTEROL 67.4 MG/DL (<100); MAGNESIUM LEVEL 1.8 MG/DL (1.8-2.4); POTASSIUM SERUM 4.6 MMOL/L (3.5-5.1); SODIUM LEVEL 140 MMOL/L (136-145); TOTAL PROTEIN 6.7 G/DL (5.7-8.2); TRIGLYCERIDES LEVEL 148 MG/DL (<150)
[2024-05-31 14:16] LABS: FREE T4 0.99 NG/DL (0.89-1.76); THYROID STIMULATING HORMONE 16.508 uIU/ML (0.55-4.78)
[2024-05-31 14:22] LABS: BASO # 0.1 10^3/uL (0.0-0.2); BASO % 0.7 % (0.0-1.0); EOS # 0.2 10^3/uL (0.0-0.5); HEMATOCRIT 39.4 % (42.0-52.0); HEMOGLOBIN 12.7 g/dl (13.5-17.5); LYMPH % 23.2 % (24.0-44.0); MEAN CORPUSCULAR HEMOGLOBIN 31.3 pg (27.0-33.0); MEAN CORPUSCULAR HGB CONC 32.2 g/dl (32.0-36.5); MONO # 0.8 10^3/uL (0.0-0.8); NEUTROPHILS # 5.6 10^3/uL (1.5-8.5); NEUTROPHILS % 64.3 % (36.0-66.0); RED BLOOD COUNT 4.06 10^6/uL (4.30-6.10); WHITE BLOOD COUNT 8.7 10^3/uL (4.0-10.0)
[2024-05-31 14:24] LABS: HEMOGLOBIN A1c 6.2 % (4.0-6.0)
== END ==
LOC: M LAB REF 13:13
PROVIDERS: ATTEND Nurse Practitioner Family
DX: E03.9 Hypothyroidism, unspecified (principal); E66.3 Overweight

== ENCOUNTER 2024-06-23 07:50 | Outpatient (RCR) | payer MEDICARE | END 2024-07-08 | LOC: M ST 07:50 | PROVIDERS: ATTEND Otolaryngology | DX: Z96.3 Presence of artificial larynx (principal) ==

== ENCOUNTER → 2024-07-14 | Outpatient (CLI) | payer MEDICARE | LOC: M RAD 14:17 | PROVIDERS: ATTEND Internal Medicine Pulmonary Disease | DX: Z85.118 Personal history of other malignant neoplasm of bronchus and lung (principal); Z93.0 Tracheostomy status; I25.10 Atherosclerotic heart disease of native coronary artery without angina pectoris; K76.0 Fatty (change of) liver, not elsewhere classified; K44.9 Diaphragmatic hernia without obstruction or gangrene ==

== ENCOUNTER → 2024-10-02 | Outpatient (REF) | payer MEDICARE, OTHER ==
[2024-10-02 19:25] LABS: BASO # 0.1 10^3/uL (0.0-0.2); BASO % 0.7 % (0.0-1.0); EOS # 0.3 10^3/uL (0.0-0.5); EOS % 3.1 % (0.0-3.0); HEMATOCRIT 40.1 % (42.0-52.0); HEMOGLOBIN 12.9 g/dl (13.5-17.5); LYMPH % 24.3 % (24.0-44.0); MEAN CORPUSCULAR HEMOGLOBIN 30.4 pg (27.0-33.0); MEAN CORPUSCULAR HGB CONC 32.2 g/dl (32.0-36.5); MEAN CORPUSCULAR VOLUME 94.4 fl (80.0-96.0); MONO # 0.8 10^3/uL (0.0-0.8); MONO % 10.4 % (2.0-8.0); NEUTROPHILS # 4.9 10^3/uL (1.5-8.5); NEUTROPHILS % 60.8 % (36.0-66.0); PLATELET COUNT, AUTOMATED 221 10^3/uL (150-450); RED BLOOD COUNT 4.25 10^6/uL (4.30-6.10)
[2024-10-02 19:28] LABS: ALBUMIN 3.8 G/DL (3.2-5.2); ALKALINE PHOSPHATASE 71 U/L (40-129); ALT/SGPT 84 U/L (7.0-40); AST/SGOT 92 U/L (<34); BILIRUBIN,TOTAL 0.5 MG/DL (0.3-1.2); BLOOD UREA NITROGEN 25 MG/DL (9-23); CALCIUM LEVEL 9.8 MG/DL (8.3-10.6); CARBON DIOXIDE LEVEL 27 MMOL/L (20-31); CHLORIDE LEVEL 109 MMOL/L (98-107); CHOLESTEROL LEVEL 144 MG/DL (<200); CHOLESTEROL RISK RATIO 3.52 (<5); CREATININE FOR GFR 1.06 MG/DL (0.70-1.30); GLOMERULAR FILTRATION RATE > 60.0 (>49); GLUCOSE, FASTING 142 MG/DL (74-106); HDL CHOLESTEROL 40.9 MG/DL (>40); LDL CHOLESTEROL 76.1 MG/DL (<100); NON-HDL-C 103.1 MG/DL; POTASSIUM SERUM 4.8 MMOL/L (3.5-5.1); SODIUM LEVEL 141 MMOL/L (136-145); THYROID STIMULATING HORMONE 10.839 uIU/ML (0.55-4.78); TOTAL PROTEIN 7.3 G/DL (5.7-8.2); TRIGLYCERIDES LEVEL 135 MG/DL (<150)
[2024-10-02 19:43] LABS: HEMOGLOBIN A1c 6.2 % (4.0-6.0)
== END ==
LOC: M LAB REF 16:39
PROVIDERS: ATTEND Nurse Practitioner Family
DX: E78.5 Hyperlipidemia, unspecified (principal); J44.9 Chronic obstructive pulmonary disease, unspecified; D64.9 Anemia, unspecified; K21.9 Gastro-esophageal reflux disease without esophagitis; E11.9 Type 2 diabetes mellitus without complications; E03.9 Hypothyroidism, unspecified

== ENCOUNTER 2024-12-12 08:10 | Outpatient (RCR) | payer MEDICARE | END 2025-01-05 | LOC: M ST 08:10 | PROVIDERS: ATTEND Otolaryngology | DX: Z90.02 Acquired absence of larynx (principal); Z96.3 Presence of artificial larynx ==

== ENCOUNTER → 2025-01-26 | Outpatient (CLI) | payer MEDICARE, MEDICAID | LOC: M RAD 07:05 | PROVIDERS: ATTEND Nurse Practitioner Family | DX: R74.8 Abnormal levels of other serum enzymes (principal); K76.0 Fatty (change of) liver, not elsewhere classified; R16.0 Hepatomegaly, not elsewhere classified ==

== ENCOUNTER → 2025-02-20 | Outpatient (REF) | payer MEDICARE, MEDICAID, OTHER | LOC: M LAB REF 14:22 | PROVIDERS: ATTEND Nurse Practitioner Family | DX: E03.9 Hypothyroidism, unspecified (principal) ==

== ENCOUNTER → 2025-06-01 | Outpatient (REF) | payer MEDICARE, MEDICAID ==
[~2025-06-01] MED LIST changes: +PROZ10CA11 PO
[2025-06-01 18:19] LABS: ALT/SGPT 55.0 U/L (7.0-40); AST/SGOT 65.0 U/L (<34)
== END ==
LOC: M LAB REF 17:14
PROVIDERS: ATTEND Nurse Practitioner Family
DX: E03.9 Hypothyroidism, unspecified (principal); R74.8 Abnormal levels of other serum enzymes

== ENCOUNTER 2025-06-05 07:24 | Day surgery (SDC) | payer MEDICARE, MEDICAID ==
[~2025-06-05] VITALS: Ht 149.9 cm; Wt 63.6 kg
[2025-06-05 09:55] VITALS: BP 186/79; TEMP 97.5; O2SAT 100
== END 2025-06-05 10:01 | disposition home or self-care (01) ==
LOC: M OPP 07:24
PROVIDERS: ATTEND Internal Medicine Gastroenterology
DX: K55.20 Angiodysplasia of colon without hemorrhage (principal); K64.8 Other hemorrhoids; Z86.0100 Personal history of colon polyps, unspecified

== ENCOUNTER → 2025-08-17 | Outpatient (CLI) | payer MEDICARE, MEDICAID | LOC: M RAD 09:09 | PROVIDERS: ATTEND Internal Medicine Pulmonary Disease | DX: J43.9 Emphysema, unspecified (principal); J98.11 Atelectasis; I25.10 Atherosclerotic heart disease of native coronary artery without angina pectoris; I25.84 Coronary atherosclerosis due to calcified coronary lesion; K44.9 Diaphragmatic hernia without obstruction or gangrene; M47.815 Spondylosis without myelopathy or radiculopathy, thoracolumbar region; Z87.891 Personal history of nicotine dependence ==

== ENCOUNTER → 2025-10-11 | Outpatient (REF) | payer MEDICARE, MEDICAID ==
[2025-10-11 17:31] LABS: PSA SCREENING 0.26 NG/ML (< 4.00)
[2025-10-11 17:39] LABS: CALCIUM LEVEL 9.2 MG/DL (8.3-10.6); CARBON DIOXIDE LEVEL 26.0 MMOL/L (20-31); CHLORIDE LEVEL 106.0 MMOL/L (98-107); CHOLESTEROL LEVEL 136.0 MG/DL (<200); CHOLESTEROL RISK RATIO 2.89 (<5); CREATININE FOR GFR 0.99 MG/DL (0.70-1.30); GLOMERULAR FILTRATION RATE 84.0 (>49); LDL CHOLESTEROL 55.0 MG/DL (<100); NON-HDL-C 89.0 MG/DL; POTASSIUM SERUM 4.8 MMOL/L (3.5-5.1); SODIUM LEVEL 143.0 MMOL/L (136-145); TRIGLYCERIDES LEVEL 170.0 MG/DL (<150)
[2025-10-11 18:16] LABS: ESTIMATED AVERAGE GLUCOSE 131.0 MG/DL (60-110)
== END ==
LOC: M LAB REF 16:23
PROVIDERS: ATTEND Nurse Practitioner Family
DX: E03.9 Hypothyroidism, unspecified (principal); E11.9 Type 2 diabetes mellitus without complications; K21.9 Gastro-esophageal reflux disease without esophagitis; E78.5 Hyperlipidemia, unspecified; Z12.5 Encounter for screening for malignant neoplasm of prostate
CPT/HCPCS: 80048; 80061; 83036; 84443; G0103

== ENCOUNTER 2025-10-24 09:09 | Outpatient (RCR) | payer MEDICARE, MEDICAID | END 2025-11-07 | LOC: M ST 09:09 | PROVIDERS: ATTEND Otolaryngology | DX: Z96.3 Presence of artificial larynx (principal) ==